=== PATIENT | male | born 1985 | race American Indian/Alaskan Native ===

== ENCOUNTER 2017-12-19 21:25 | Emergency (ER) | payer OTHER, MEDICAID ==
[~2017-12-19] VITALS: Ht 182.9 cm; Wt 158.8 kg
[~2017-12-19 21:25] MED LIST: PREDNISONE20 MG PO
--- NOTE | 2017-12-20 06:19 | EKG ---
[facility] [address] [facility] [place], [place] [address] Signed Normal sinus rhythm Cannot rule out Anterior infarct , age undetermined Abnormal ECG No previous ECGs available Confirmed by JOSE LUIS MC MD ([id number]) on 12/20/2017 6:19:26 AM Electronically Signed By: JOSE LUIS MC MD 12/20/17 0619 PATIENT NAME: GREG GAMBOA SALLIE Electrocardiogram DATE OF : 87 PHYSICIAN: JOSE LUIS MC MD REPORT #: [id number] REPORT IS CONFIDENTIAL AND NOT TO BE RELEASED WITHOUT AUTHORIZATION
== END 2017-12-19 23:30 | disposition home or self-care (01) ==
LOC: ED 21:25
PROC: 0T9B70Z Drainage of Bladder with Drainage Device, Via Natural or Artificial Opening (ICD-10-PCS; principal; 2017-12-19)
DX: R42 Dizziness and giddiness (principal)
CPT/HCPCS: 51701; 71046; 80053; 81001; 84484; 85025; 85379; 93005; 93010; 96374; 99284; G0480; J2060

== ENCOUNTER 2018-12-19 19:02 | Emergency (ER) | payer SELFPAY ==
[~2018-12-19] VITALS: Ht 182.9 cm; Wt 158.8 kg
== END 2018-12-19 22:13 | disposition home or self-care (01) ==
LOC: ED 19:02
DX: T78.1XXA Other adverse food reactions, not elsewhere classified, initial encounter (principal); R06.02 Shortness of breath; I10 Essential (primary) hypertension
CPT/HCPCS: 94640; 96374; 96375; 99284-25; J1200; J2930; Q0163

== ENCOUNTER 2019-06-26 04:42 | Inpatient (IN) | payer OTHER ==
[~2019-06-26] VITALS: Ht 182.9 cm; Wt 157.4 kg
--- NOTE | 2019-06-26 07:50 | NUR ---
REC'D PT TO ROOM 127. ROOM ORIENTION GIVEN, DEMO'D USE OF CALL LIGHT. PT ABLE TO STAND AND TRANSFER SELF TO BED. DENIES PAIN. DENIES SHORTNESS OF BREATH. HR AFIB 140-150'S. ON ESMOLOL DRIP AND FINISHING BANANA BAG.
--- NOTE | 2019-06-26 08:15 | NUR ---
PT HR CONT TO BE 130-150'S AT REST. ESMOLOL DRIP INCREASED TO 100MCG/KG/MIN. VS CHARTED. WILL CONT TO MONITOR AND ASSESS
--- NOTE | 2019-06-26 08:52 | NUR ---
DR. ALVES SAID TO INCREASE ESMOLOL DRIP. INCREASED TO 150MCH/KG/MIN. PT HR AFIB 120-150'S
--- NOTE | 2019-06-26 09:32 | NUR ---
PT HR 120-150'S AFIB. ESMOLOL DRIP INCREASED TO 200MCG. DR ALVES NOTIFIED. REC'D ORDER TO LEAVE AT 200MCG/KG/MIN AT THIS TIME.
--- NOTE | 2019-06-26 10:30 | NUR ---
SPOKE WITH PATIENT AND HIS MOTHER IN ROOM. PATIENT DENIES ANY KNOWN BARRIERS TO RETURNING HOME SAFELY. DISCUSSED HIS UNDERSTANDING OF DIAGNOSIS, MEDICATIONS AND SIDE EFFECTS, AND FOLLOW UP NEEDS. PATIENT STATES UNDERSTANDING, PATIENT FALLS ASLEEP EASILY DURING CONVERSATION. WILL CONTINUE TO FOLLOW.
--- NOTE | 2019-06-26 11:30 | NUR ---
DR. ALVES NOTIFIED OF PT HR CONTINUING TO SUSTAIN 120-150'S. AT BEDSIDE TO EVALUATE. GAVE 2 5MG IV DOSES OF CARDIZEM WITH SOME IMPROVEMENT. WILL CONT TO MONITOR AND ASSESS
--- NOTE | 2019-06-26 12:37 | NUR ---
PT RESTING IN BED. ESMOLOL FINISHED AND CARDIZEM DRIP STARTED PER DR. ALVES ORDER. PT C/O FEELING RESTLESS. FAMILY AT BEDSIDE. WILL CONT TO MONITOR AND ASSESS.
--- NOTE | 2019-06-26 12:50 | NUR ---
PT HR 120-140'S. INCREASED DILTIAZEM DRIP TO 15MG/HR. DR. ALVES HERE, ASKED FOR SOMETHING FOR ANXIETY FOR PT. NEW ORDERS REC'D.
--- NOTE | 2019-06-26 13:54 | NUR ---
PT STOOD AT BEDSIDE TO VOID. DENIED FEELING DIZZY OR LIGHTHEADED. KRISTEL WELL. BACK TO BED. PO LIBRIUM GIVEN. EDUCATED PT ON USE. VERB UNDERSTANDING. CALL LIGHT IN REACH. FAMILY AT BEDSIDE. DENIES FURTHER NEEDS.
--- NOTE | 2019-06-26 15:00 | NUR ---
PT STOOD AT BEDSIDE TO VOID. HR INCREASED TO 120-150 WITH ACTIVITY. PT BACK TO BED. HR CURRENTLY 100-110'S AT REST. WILL CONT TO MONITOR AND ASSESS.
--- NOTE | 2019-06-26 16:30 | NUR ---
PT RESTING IN BED. EYES CLOSED. FAMILY AT BEDSIDE. CALL LIGHT IN REACH
--- NOTE | 2019-06-26 16:53 | EKG ---
[facility] [address] [facility] [place] [address] Signed Atrial fibrillation with rapid ventricular response Possible Anterior infarct (cited on or before 19-DEC-2017) Abnormal ECG When compared with ECG of 19-DEC-2017 21:44, Atrial fibrillation has replaced Sinus rhythm Vent. rate has increased BY 81 BPM Confirmed by SUELLEN ALVES MD ([id number]) on 06/26/2019 4:53:21 PM Electronically Signed By: SUELLEN ALVES MD 06/26/19 1653 PATIENT NAME: GREG GAMBOA SALLIE Electrocardiogram DATE OF : 87 PHYSICIAN: SUELLEN ALVES MD REPORT #: [id number] REPORT IS CONFIDENTIAL AND NOT TO BE RELEASED WITHOUT AUTHORIZATION
--- NOTE | 2019-06-26 17:59 | NUR ---
PT STOOD AT BEDSIDE TO VOID. HR 110-130'S, AFIB. PT DENIES NEEDS AT THIS TIME. CALL LIGHT IN REACH.
--- NOTE | 2019-06-26 18:15 | NUR ---
PT EATING DINNER. DENIES NAUSEA OR HEADACHE. NO TREMOR NOTED. PT STATES "I FEEL BETTER". DENIES NEEDS. FAMILY AT BEDSIDE. HR CONTINUES TO BE LABILE, REMAINS ON CARDIZEM DRIP AT 15MG/HR. CALL LIGHT IN REACH.
--- NOTE | 2019-06-26 18:40 | NUR ---
PT NOTED TO HAVE MORE FREEQUENT PVC'S. DR. ALVES NOTIFIED AND NEW ORDERS REC'D. PT ASYMPTOMATIC. WILL CONT TO MONITOR AND ASSESS.
--- NOTE | 2019-06-26 19:51 | NUR ---
AMD TO BR TO HAVE BM AND VOID. KRISTEL BEING UP WELL, HR TO 110 WITH BEING UP. STATES FELT GOOD TO GET OUT OF BED.
--- NOTE | 2019-06-26 20:30 | NUR ---
PATIENT RESTING IN BED. DENIES ANY PAIN OR NAUSEA. CIWA 2 FOR MILD SWEATING. PATIENT REPORTS THE SWEATING AT NIGHT IS NORMAL FOR HIM, REQUEST A FAN. LUNGS ARE CLEAR, USING 2L NC WHILE SLEEPING DUE TO PROBABLE GERSON. IV DILTIAZEM 15MG/HR. PATIENT HR IRREGULAR 90-115. BP STABLE.
--- NOTE | 2019-06-26 21:59 | NUR ---
PATIENT CONVERTED INTO SINUS RHYTHM WITH HR 50-60'S. BP STABLE. DISCUSSED WITH DR. ALVES. DILTIAZEM STOPPED AT THIS TIME. VERBAL ORDERS TO HOLD MIDNIGHT DOSE OF LOPRESSOR. DISCUSSED CONCERNS OF PATIENT'S GERSON AND O2 SATS IN THE 70'S WITH 2L NC. ORDERS FOR BIPAP/CPAP RECEIVED. RT CONTACTED. PATIENT AGREEABLE TO PLAN OF CARE.
--- NOTE | 2019-06-26 23:00 | NUR ---
PATIENT TOLERATING CPAP WELL. O2 SAT >92%. PATIENT APPEARS TO BE SLEEPING SOUNDLY.
--- NOTE | 2019-06-27 00:25 | NUR ---
PATIENT WOKE TO VOICE, BUT IS FREQUENTLY DROWSEY. PATIENT DENIED TOILETING NEEDS. SCHEDULED MEDS PROVIDED. PATIENT CONTINUES TO TOLERATE CPAP. HR 80'S, SINUS RHYTHM.
--- NOTE | 2019-06-27 03:12 | NUR ---
PATIENT WOKE AND REQUESTED A BREAK FROM THE CPAP. DISCUSSED IMPROVEMENTS IN PATIENT'S O2 SAT FROM WEARING THE CPAP. PATIENT AGREES TO WEAR THE CPAP AGAIN AFTER AN HOUR. 3L NC PLACED.
--- NOTE | 2019-06-27 04:41 | NUR ---
PATIENT CONTINUES TO HAVE APNIC EPISODES WHILE SLEEPING. PATIENT AGREEABLE TO CPAP AT THIS TIME. REPORTS ONGOING DISCOMFORT IN HIS BACK. ASSISTED PATIENT TO POSITION PARTIALLY ON HIS SIDE. REPORTS BEING MORE COMFORTABLE. ALLOWED REST AT THIS TIME.
--- NOTE | 2019-06-27 06:08 | NUR ---
PATIENT WOKE FOR MORNING LABS. FREQUENTLY DROWSEY. ORIENTED AND CALM. REPORTS FEELING SOME TREMORS PREVIOUSLY, BUT NONE NOW. CIWA 0. SCHEDULED MEDS PROVIDED. DISCUSSED INDICATIONS FOR CPAP, PATIENT VERBALIZED UNDERSTANDING. DISCUSSED LOPRESSOR MEDICATION, PATIENT APPEARS TO HAVE MODERATE UNDERSTANDING. AGREES TO CONTINUE WEARING CPAP.
--- NOTE | 2019-06-27 08:06 | NUR ---
PT ALERT AND ORIENTED SITTING UP IN BED. ASSESSMENT COMPLETE. PT DENIES HEADACHE, TREMORS, OR NAUSEA. NO C/O PAIN. HR IN THE 80'S. O2 SATS 97% ON RA. CALL LIGHT IN REACH.
--- NOTE | 2019-06-27 08:35 | NUR ---
PT SITTING UP IN BED EATING BREAKFAST. AM MEDS GIVEN, EDUCATED PT ON MEDS. PT ABLE TO TEACH BACK PREVIOUS EDUCATION GIVEN ON A-FIB AND ALCOHOL WITHDRAWAL. PT DENIES QUESTIONS OR CONCERNS AT THIS TIME, WILL ALLOW PT TO REST.
--- NOTE | 2019-06-27 09:36 | NUR ---
PT LYING IN BED, VISITOR AT BEDSIDE. PT DENIES NAUSEA, TREMORS, ANXIETY OR HEADACHE. HR IN THE 80'S. CALL LIGHT IN REACH.
--- NOTE | 2019-06-27 10:34 | NUR ---
PT OOB TO AMB TO BR WITH SBA TO VOID 400 ML YELLOW URINE. KRISTEL WELL. NO C/O OF PALPITATIONS, SOB, OR LIGHT HEADEDNESS. HR IN THE MID 80'S. PT BACK TO BED. FAMILY AT BEDSIDE. CALL LIGHT IN REACH.
--- NOTE | 2019-06-27 11:30 | NUR ---
SPOKE WITH PATIENT IN ROOM. DISCUSSED WE CAN ASK [facility] DRUG [facility] ALCOHOL COUNSELOR COME AND VISIT WITH HIM FOR RESOURCES OR QUESTIONS. HE DECLINES STATING HE IS GOING TO CONTACT [facility] DRUG AND ALCOHOL PROGRAM. HE STATES HE HAS BEEN THERE BEFORE AND FEELS MORE COMFORTABLE GOING THERE. ENCOURAGED THIS AND ASKED IF HE NEEDS ME TO CALL THEM AND SET UP AN APPOINTMENT, HE DECLINES STATING HE WILL CALL BECAUSE HE ISN'T SURE WHEN HE CAN GO YET. PATIENT DENIES ANY QUESTIONS OR NEEDS AT THIS TIME.
--- NOTE | 2019-06-27 12:20 | NUR ---
PT SITTING UP IN BED FINISHING LUNCH. PT DENIES NAUSEA, STATES "I HAVEN'T FELT THIS GOOD IN A LONG TIME". PT ALSO EXPRESSES HE IS HAPPY TO HAVE AN APPETITE BACK. PT DENIES NEEDS AT THIS TIME.
--- NOTE | 2019-06-27 13:00 | NUR ---
PT UP TO SHOWER INDEPENDENTLY, HR UP TO 100'S IN SHOWER. PT DENIES SOB OR PALPITATIONS, RR 24. PT DENIES HEADACHE OR TREMORS. LINENS CHANGED. AM CARE DONE BY PT AT KRISTEL MA. PT BACK TO BED AT THIS TIME.
--- NOTE | 2019-06-27 15:02 | NUR ---
PT SITTING UP IN BED HAVING A SNACK. DENIES NAUSEA, TREMORS, OR ANXIETY. PT STATES HE'S DOING A "LOT OF SELF REFLECTION" SINCE VISITING WITH DR. ALVES THIS AFTERNOON. HR IN THE 'S, 02 SATS 96% ON RA. PT DENIES OTHE NEEDS AT THIS TIME. CALL LIGHT IN REACH.
--- NOTE | 2019-06-27 17:31 | NUR ---
MED REC COMPLETE
--- NOTE | 2019-06-27 17:37 | NUR ---
PATIENT USES CALL LIGHT AND REQUESTING SOMETHING FOR HIS "HEADACHE" THAT HE REPORTS TO BE A 5/10 AT THIS TIME. PT GIVEN TYLENOL (SEE EMAR). PATIENT ASKED ABOUT CAFFEINE USE AND STATES HE DRINKS A FAIR AMOUNT OF CAFFEINE/DAY, THEREFORE PATIENT ALSO PROVIDED WITH A POP. INSTRUCTED PATIENT TO CALL RN IF HEADACHE DOES NOT SUBSIDE AFTER MEDICATION. NO SIGNS OF ETOH W/D AT THIS TIME, AND PATIENT RESTING CALMLY IN BED. WILL CONTINUE TO MONITOR.
--- NOTE | 2019-06-27 18:43 | NUR ---
PT LYING IN BED VISITING WITH FAMILY AT BEDSIDE. SEEMS TO BE IN GOOD SPIRITS. PT DENIES S/SX OF ETOH WITHDRAWAL. HR IN THE 80'S, NO C/O SOB OR PALPITATIONS. PT DENIES NEEDS AT THIS TIME, CALL LIGHT IN REACH.
--- NOTE | 2019-06-27 19:56 | NUR ---
SHIFT REPORT RECEIVED. PATIENT UP TO THE BATHROOM WITH MINIMAL ASSIST. APPEARS STEADY ON HIS FEET. FRESH ICE PROVIDED PER REQUEST. DENIES OTHER NEEDS.
--- NOTE | 2019-06-27 21:06 | NUR ---
AMB TO BR, KRISTEL WELL.
--- NOTE | 2019-06-27 21:15 | NUR ---
PATIENT PROVIDED WITH EVENING MEDICATIONS. VS STABLE. SINUS RHYTHM NOTED, HR 80'S. CIWA = 1. PATIENT REPORTS MILD ANXIETY, PRN MEDS PROVIDED. RT IN TO SEE PATIENT. CONTINUED EDUCATION PROVIED ON GERSON AND CPAP. PATIENT AGREEABLE TO WEARING CPAP AGAIN TONIGHT.
--- NOTE | 2019-06-27 22:30 | NUR ---
PATIENT TOLERATING CPAP. VS STABLE.
--- NOTE | 2019-06-28 01:06 | NUR ---
PATIENT UP TO USE THE BATHROOM. STEADY ON HIS FEET. REPORTS SLEEPING SOUNDLY WITH CPAP. VS STABLE. PATIENT RETURNED TO BED. CPAP IN PLACE.
--- NOTE | 2019-06-28 04:45 | NUR ---
PATIENT HAS BEEN SLEEPING SOUNDLY WITH CPAP IN PLACE. VS STABLE. PATIENT WOKE EASILY TO VOICE. DENIES ANY NEEDS AT THIS TIME. CALL LIGHT IN REACH.
--- NOTE | 2019-06-28 06:28 | NUR ---
PATIENT WOKE AT THIS TIME. REPORTS FEELING LIKE HE "SLEPT AMAZING". REQUESTED A SODA, WHICH WAS PROVIED.
--- NOTE | 2019-06-28 07:44 | NUR ---
PT ALERT AND ORIENTED LYING IN BED WATCHING TV. DENIES NAUSEA, HEADACHE, OR TREMORS. HR IN THE 70-80'S, 02 97% ON RA. PT DENIES OTHER NEEDS AT THIS TIME, CALL LIGHT IN REACH.
--- NOTE | 2019-06-28 08:30 | NUR ---
REPRESENTITIVE FROM [facility] IN TO SPEAK WITH PT ABOUT DRUG AND ALCOHOL SERVICES AVAILABLE. PT SEEMED OPEN TO ACCEPTING SERVICES.
[2019-06-28] MEDS ORDERED: METOPROLOL SUC200 MG PO (09:41)
[2019-06-28] MEDS ORDERED: ASPIRIN EC81 MG PO (09:42)
[2019-06-28] MEDS ORDERED: GABAPENTIN300 MG PO (09:42)
[2019-06-28] MEDS ORDERED: LISINOPRIL10 MG PO (09:42)
[2019-06-28] MEDS ORDERED: HYDROXYZINE PAM25 MG PO (09:43)
[2019-06-28] MEDS ORDERED: TRAZODONE HCL50 MG PO (09:43)
--- NOTE | 2019-06-28 10:00 | NUR ---
PT UP TO BR INDPENDENTLY TO VOID 350 ML YELLOW URINE. KRISTEL WELL. PT DENIES NAUSEA AND OTHER S/SX OF ETOH WITHDRAWAL. PT BACK TO BED. CALL LIGHT IN REACH.
--- NOTE | 2019-06-28 11:20 | NUR ---
DISCHARGE INSTRUCTIONS GIVEN. [facility]. PT STATES HIS UNDERSTANDING OF MEDICATIONS AND FOLLOW-UP INSTRUCTIONS. PT TAKEN OUT BY WC TO RIDE WAITING IN THE PARKING LOT.
== END 2019-06-28 11:10 | disposition home or self-care (01) | DRG 309 ==
LOC: ED 04:42 → CCU 04:43
PROVIDERS: ADMIT Internal Medicine
DX: I48.0 Paroxysmal atrial fibrillation (principal); Z68.42 Body mass index [BMI] 45.0-49.9, adult; I51.9 Heart disease, unspecified; I10 Essential (primary) hypertension; F10.20 Alcohol dependence, uncomplicated; E66.01 Morbid (severe) obesity due to excess calories; F31.9 Bipolar disorder, unspecified; F41.9 Anxiety disorder, unspecified; F51.05 Insomnia due to other mental disorder
CPT/HCPCS: 36415; 71045; 80048; 80053; 80061; 81001; 83036; 83735; 84443; 84484; 85025; 93005; 93010; 93306; 94660; 96365; 96366; 96368; 96372; 96375; 96376; 99285-25; G0378; G0480; J1650; J2060; J2405; J3411; J3475; J7030; Q0177

== ENCOUNTER 2019-08-08 16:54 | Emergency (ER) | payer OTHER ==
[~2019-08-08] VITALS: Ht 182.9 cm; Wt 157.4 kg
--- OUTSIDE RECORDS SUMMARY | ~2019-08-08 | XMS | Clinical Summary ---
Demographics + + + | Address | [address] | | | [place] [address] | + + + | Home Phone | | + + + | Preferred Language | Unknown | + + + | Marital Status | Single | + + + | Restorationist Affiliation | Unknown | + + + | Race | Unknown | + + + | Ethnic Group | Unknown | + + + Author + + + | Author | [facility] | | | and [place] | + + + | Organization | [facility] | | | and [place] | + + + | Address | Unknown | + + + | Phone | Unavailable | + + + Support + + +---------+ + | Name | Relationship | Address | Phone | + + +---------+ + | Charles Bobo | ECON | Unknown | | + + +---------+ + Care Team Providers + +------+ + | Care Kitchen Steward Name | Role | Phone | + +------+ + | Isabel Cheung | PCP | | + +------+ + Allergies Not on File Medications Not on file Active Problems Not on file Social History + +-------+ +--------+------+ | Tobacco Use | Types | Packs/Day | Years | Date | | | | | Used | | + +-------+ +--------+------+ | Never Assessed | | | | | + +-------+ +--------+------+ + + + | Sex Assigned at | Date Recorded | | | | + + + | Not on file | | + + + + + + + | Job Start Date | Occupation | Industry | + + + + | Not on file | Not on file | Not on file | + + + + + + + + | Travel History | Travel Start | Travel End | + + + + + + | No recent travel history available. | + + Last Filed Vital Signs Not on file Plan of Treatment +--------+---------+ + + + | Date | Type | Specialty | Care Team | Description | +--------+---------+ + + + | 08/28/ | Office | Cardiology | Gerry Asif, | | | 2018 | Visit | | MD Shelley Mari | | | | | | [facility] | | | | | | [place] [address] | | | | | | [phone] | | | | | | | | +--------+---------+ + + + | 09/11/ | Office | Sleep Medicine | Uma Kulkarni MD | | | 2018 | Visit | | [address] | | | | | | [place] | | | | | | [phone] | | | | | | | | +--------+---------+ + + + + + + + + | Health Maintenance | Due Date | Last Done | Comments | + + + + + | Vaccine: | | | | | Dtap/Tdap/Td (1 - | 6 | | | | Tdap) | | | | + + + + + | Vaccine: Influenza | | | | | (#1) | 9 | | | + + + + + Results Not on filefrom Last 3 Months Insurance + +--------+ +--------+-------+---------+--------+ | Payer | Benefi | Subscriber | Effect | Phone | Address | Type | | | t Plan | ID | [id number] | | | | | | / | | Dates | | | | | | Group | | | | | | + +--------+ +--------+-------+---------+--------+ | [employer] [facility] | [employer] | [id number] | 01/26/20 | | | Indemn | | SERVICE | YELLOW | | 12-Pre | | | ity | | | HAWK | | sent | | | | + +--------+ +--------+-------+---------+--------+ + +--------+ +--------+ + + | Guarantor Name | Accoun | Relation to | Date | Phone | Billing Address | | | t Type | Patient | of | | | | | | | | | | + +--------+ +--------+ + + | Gordy Zhu | Person | Self [birth year] | [address] | | | al/Fam | | 1986 | [phone] | [place] [address] | | | kimberly | | | 4 (Home) | | + +--------+ +--------+ + + Advance Directives + + + + + | Type | Date Recorded | Patient | Explanation | | | | Assessment Coordinator | | + + + + + | Power of | | | | | Sharepoint Architect | | | | + + + + + | Advance | | | | | Directive | | | | + + + + +"
--- OUTSIDE RECORDS SUMMARY | ~2019-08-08 | XMS | Clinical Summary ---
Demographics + + + | Address | [address] | | | [place] [address] | + + + | Home Phone | | + + + | Preferred Language | Unknown | + + + | Marital Status | Single | + + + | Synagogue Affiliation | Unknown | + + + | Race | Unknown | + + + | Ethnic Group | Unknown | + + + Author + + + | Author | [facility] | | | and [place] | + + + | Organization | [facility] | | | and [place] [...] Team Providers + +------+ + | Care Computing Machine Operator Name | Role | Phone | + +------+ + | Isabel Cehung | PCP | | + +------+ + [...] | | | | | | [place] [address] | | | | | | [phone] | | | | | | | | +--------+---------+ + + + | 09/11/ | Office | Sleep Medicine | Uma Kulkarni MD | | | 2018 | Visit | | [address] | | | | | | [place] | | | | | | [phone] | | | | | | | [...] | | | + +--------+ +--------+-------+---------+--------+ | [facility] | [employer] | [id number] | 01/26/20 | | | Indemn | [...] | Self | [birth year] | [address] | | | al/Fam | | 1986 | [phone] | [place] [address] | | | kimberly | | | 4 (Home) | | + +--------+ +--------+ + + Advance Directives + + + + + | Type | Date Recorded | Patient | Explanation | | | | Hydroelectric Systems Technician | | + + + + + | Power of | | | | | Geological Science Teacher | | | | + + + + + | Advance | | | | | Directive | | | | + + + + +"
[~2019-08-08 16:54] MED LIST changes: +ASPIRIN EC81 MG PO; +GABAPENTIN300 MG PO; +HYDROXYZINE PAM25 MG PO; +LISINOPRIL10 MG PO; +METOPROLOL SUC200 MG PO; +TRAZODONE HCL50 MG PO
[2019-08-08] MEDS ORDERED: ABILIFY10 MG PO (17:06)
--- NOTE | 2019-08-08 20:22 | EKG ---
[facility] [address] [place] [address] Signed Normal sinus rhythm Cannot rule out Inferior infarct , age undetermined Cannot rule out Anterior infarct (cited on or before 19-DEC-2017) Abnormal ECG When compared with ECG of 26-JUN-2019 04:47, Sinus rhythm has replaced Atrial fibrillation Vent. rate has decreased BY 87 BPM Confirmed by SUELLEN ALVES MD ([id number]) on 08/08/2019 8:21:40 PM Electronically Signed By: SUELLEN ALVES MD 08/08/192021 PATIENT NAME: GREG GAMBOA Electrocardiogram DATE OF : 87 PHYSICIAN: SUELLEN ALVES MD REPORT #: [id number] REPORT IS CONFIDENTIAL AND NOT TO BE RELEASED WITHOUT AUTHORIZATION
== END 2019-08-08 18:54 | disposition home or self-care (01) ==
LOC: ED 16:54
DX: R00.2 Palpitations (principal); I10 Essential (primary) hypertension; I48.91 Unspecified atrial fibrillation; Z79.899 Other long term (current) drug therapy
CPT/HCPCS: 71045; 80053; 84443; 84484; 85025; 85379; 93005; 93010; 99285-25; J7040

== ENCOUNTER 2020-07-05 13:18 | Emergency (ER) | payer OTHER ==
[~2020-07-05] VITALS: Ht 182.9 cm; Wt 157.4 kg
--- OUTSIDE RECORDS SUMMARY | ~2020-07-05 | XMS | Encounter Summary ---
Demographics + + + | Address | [address] | | | [place] [address] | + + + | Home Phone | | + + + | Preferred Language | Unknown | + + + | Marital Status | Single | + + + | Mandaeism Affiliation | Unknown | + + + | Race | or | + + + | Ethnic Group | Not or | + + + Author + + + | Author | [facility] | | | and [place] | + + + | Organization | [facility] | | | and [place] | + + + | Address | Unknown | + + + | Phone | Unavailable | + + + Support + + +---------+ + | Name | Relationship | Address | Phone | + + +---------+ + | Charles Bobo | ECON | Unknown | | + + +---------+ + Care Team Providers + +------+ + | Care Banquet Cook Name | Role | Phone | + +------+ + | Isabel Cheung | PCP | | + +------+ + Encounter Details +--------+ + + + + | Date | Type | Department | Care Team | Description | +--------+ + + + + | 04/11/ | Abstract | [facility] | Provider, | | | 2020 | | CARDIOLOGY [address] | | | | [address] [place], | [address] | | | | | [place] [address] | [place] [address] | | | | | [phone] | | | +--------+ + + + + Social History + +-------+ +--------+------+ | Tobacco Use | Types | Packs/Day | Years | Date | | | | | Used | | + +-------+ +--------+------+ | Never Smoker | | | | | + +-------+ +--------+------+ + +---+---+---+ | Smokeless Tobacco: | | | | | Never Used | | | | + +---+---+---+ + + +---------+ + | Alcohol Use | Drinks/Week | oz/Week | Comments | + + +---------+ + | Not Currently | | | | + + +---------+ + + + + | Sex Assigned at | Date Recorded | | | | + + + | Not on file | | + + + documented as of this encounter Plan of Treatment +--------+---------+ + + + | Date | Type | Specialty | Care Team | Description | +--------+---------+ + + + | 08/06/ | Office | Sleep Medicine | Anupam Germain PA | | | 2020 | Visit | | [address] | | | | | | [place] | | | | | | [address] | | | | | | | | +--------+---------+ + + + | 04/11/ | Office | Cardiology | Gerry Asif, | | | 2020 | Visit | | [address] | | | | | | [place], | | | | | | [place] [address] | | | | | | [phone] | | | | | | | | +--------+---------+ + + + documented as of this encounter Procedures + +--------+ + + + | Procedure Name | Priori | Date/Time | Associated Diagnosis | Comments | | | ty | | | | + +--------+ + + + | EXTERNAL LAB: | Routin | 09/11/2019 | | Results for this | | VITAMIN D, | e | | | procedure are in the | | 25-HYDROXY | | | | results section. | + +--------+ + + + | EXTERNAL LAB: CBC | Routin | 09/11/2019 | | Results for this | | | e | | | procedure are in the | | | | | | results section. | + +--------+ + + + | EXTERNAL LAB: | Routin | 09/11/2019 | | Results for this | | TRIGLYCERIDES | e | | | procedure are in the | | | | | | results section. | + +--------+ + + + | EXTERNAL LAB: | Routin | 09/11/2019 | | Results for this | | CHOLESTEROL, HDL | e | | | procedure are in the | | | | | | results section. | + +--------+ + + + | EXTERNAL LAB: | Routin | 09/11/2019 | | Results for this | | CHOLESTEROL, TOTAL | e | | | procedure are in the | | | | | | results section. | + +--------+ + + + | EXTERNAL LAB: | Routin | 09/11/2019 | | Results for this | | CHOLESTEROL, LDL | e | | | procedure are in the | | | | | | results section. | + +--------+ + + + | CBC WITH | Routin | 09/11/2019 | | Results for this | | DIFFERENTIAL | e | | | procedure are in the | | | | | | results section. | + +--------+ + + + documented in this encounter Results CBC with Differential (09/11/2019) + +-------+ + + + | Component | Value | Ref Range | Performed | Pathologist | | | | | At | Signature | + +-------+ + + + | MCH | 30.5 | 26.0 - 33.0 pg | | | + +-------+ + + + | MCHC | 33.8 | 31.0 - 37.0 | | | | | | g/dL | | | + +-------+ + + + | % Basophils | 0.5 | 1.0 % | | | + +-------+ + + + + + | Specimen | + + | Blood | + + External Lab: Vitamin D, 25-Hydroxy (09/11/2019) + + + + + + | Component | Value | Ref Range | Performed | Pathologist | | | | | At | Signature | + + + + + + | Vitamin D, | 10.9 (A) | 30 - 100 | EXTERNAL | | | 25-Hydroxy, | | | LAB | | | External | | | | | + + + + + + + + | Specimen | + + | Blood | + + + + | Resulting Agency Comment | + + | [facility] | + + + +---------+ + + | Performing | Address | City/State/Zipcode | Phone Number | | Organization | | | | + +---------+ + + | EXTERNAL LAB | | | | + +---------+ + + External Lab: CBC (09/11/2019) + + + + + + | Component | Value | Ref Range | Performed | Pathologist | | | | | At | Signature | + + + + + + | WBC, | 8.76 | 4 - 11 | EXTERNAL | | | External | | | LAB | | + + + + + + | HGB, | 16.01 | 13.5 - 17.5 | EXTERNAL | | | External | | | LAB | | + + + + + + | HCT, | 47.73 | 40 - 50 | EXTERNAL | | | External | | | LAB | | + + + + + + | PLT, | 409 | 140 - 440 | EXTERNAL | | | External | | | LAB | | + + + + + + | Neutrophils | 56 | 37 - 67 | EXTERNAL | | | %, | | | LAB | | | External | | | | | + + + + + + | Lymphocytes | 22.30 (A) | 24 - 44 | EXTERNAL | | | %, | | | LAB | | | External | | | | | + + + + + + | Monocytes | 4.70 (A) | 5 - 12 | EXTERNAL | | | %, External | | | LAB | | + + + + + + | Eosinophils | 16.50 (A) | 0 - 5 | EXTERNAL | | | %, | | | LAB | | | External | | | | | + + + + + + | Neutrophils | 4.90 | 1.3 - 7 | EXTERNAL | | | , Absolute, | | | LAB | | | External | | | | | + + + + + + | Lymphocytes | 1.95 | 0.8 - 3.1 | EXTERNAL | | | , Absolute, | | | LAB | | | External | | | | | + + + + + + | Monocytes, | 0.41 | 0.2 - 1 | EXTERNAL | | | Absolute, | | | LAB | | | External | | | | | + + + + + + | Eosinophils | 1.44 (A) | 0 - 0.8 | EXTERNAL | | | , Absolute | | | LAB | | + + + + + + | Basophils, | 0.04 | 0 - 0.6 | EXTERNAL | | | Absolute | | | LAB | | + + + + + + | RBC, | 5.24 | 4.3 - 5.7 | EXTERNAL | | | External | | | LAB | | + + + + + + | MCV, | 90 | 81 - 99 | EXTERNAL | | | External | | | LAB | | + + + + + + | RDW, | 12.45 | 10.5 - 16 | EXTERNAL | | | External | | | LAB | | + + + + + + + + | Resulting Agency Comment | + + | [facility] | + + + +---------+ + + | Performing | Address | City/State/Zipcode | Phone Number | | Organization | | | | + +---------+ + + | EXTERNAL LAB | | | | + +---------+ + + External Lab: Triglycerides (09/11/2019) + +-------+ + + + | Component | Value | Ref Range | Performed | Pathologist | | | | | At | Signature | + +-------+ + + + | Triglycerid | 100 | 150 | EXTERNAL | | | es, | | | LAB | | | External | | | | | + +-------+ + + + + + | Specimen | + + | Blood | + + + + | Resulting Agency Comment | + + | [facility] | + + + +---------+ + + | Performing | Address | City/State/Zipcode | Phone Number | | Organization | | | | + +---------+ + + | EXTERNAL LAB | | | | + +---------+ + + External Lab: Cholesterol, HDL (09/11/2019) + +--------+ + + + | Component | Value | Ref Range | Performed | Pathologist | | | | | At | Signature | + +--------+ + + + | HDL | 35 (A) | 40 mg/dl | EXTERNAL | | | Cholesterol | | | LAB | | | , External | | | | | + +--------+ + + + + + | Specimen | + + | Blood | + + + + | Resulting Agency Comment | + + | [facility] | + + + +---------+ + + | Performing | Address | City/State/Zipcode | Phone Number | | Organization | | | | + +---------+ + + | EXTERNAL LAB | | | | + +---------+ + + External Lab: Cholesterol, Total (09/11/2019) + +-------+ + + + | Component | Value | Ref Range | Performed | Pathologist | | | | | At | Signature | + +-------+ + + + | Cholesterol | 159 | 200 mg/dl | EXTERNAL | | | , Total, | | | LAB | | | External | | | | | + +-------+ + + + + + | Specimen | + + | Blood | + + + + | Resulting Agency Comment | + + | [facility] | + + + +---------+ + + | Performing | Address | City/State/Zipcode | Phone Number | | Organization | | | | + +---------+ + + | EXTERNAL LAB | | | | + +---------+ + + External Lab: Cholesterol, LDL (09/11/2019) + +---------+ + + + | Component | Value | Ref Range | Performed | Pathologist | | | | | At | Signature | + +---------+ + + + | LDL | 105 (A) | 100 | EXTERNAL | | | Cholesterol | | | LAB | | | , Direct, | | | | | | External | | | | | + +---------+ + + + + + | Specimen | + + | Blood | + + + + | Resulting Agency Comment | + + | [facility] | + + + +---------+ + + | Performing | Address | City/State/Zipcode | Phone Number | | Organization | | | | + +---------+ + + | EXTERNAL LAB | | | | + +---------+ + + documented in this encounter Visit Diagnoses Not on filedocumented in this encounter"
--- OUTSIDE RECORDS SUMMARY | ~2020-07-05 | XMS | Encounter Summary ---
Demographics + + + | Address | [address] | | | [place] [address] | + + + | Home Phone | | + + + | Preferred Language | Unknown | + + + | Marital Status | Single | + + + | Adventist Affiliation | Unknown | + + + | Race | or | + + + | Ethnic Group | Not or | + + + Author + + + | Author | [facility] | | | and [place] | + + + | Organization | [facility] | | | and [...] Team Providers + +------+ + | Care Regular Senior Care Provider Name | Role | Phone | + +------+ + | Isabel Cheung | PCP | | + +------+ + Reason for Visit + +--------+ + | Reason | Onset | Comments | | | Date | | + +--------+ + | Follow-up | 05/07/ | | | | 2020 | | + +--------+ + Encounter Details +--------+ + + + + | Date | Type | Department | Care Team | Description | +--------+ + + + + | 05/07/ | Telephone | [facility] [place] [facility] | Uma Kulkarni MD | Follow-up | | 2020 | | SLEEP DISORDER [address] | [address] | | | | | [place] [place] | [place] | | | | | [place] [address] | [address] | | | | | [phone] | | | +--------+ + + + [...] + + documented as of this encounter Miscellaneous Notes Telephone Encounter - Radha Yan Electronic Tester - 06/06/2020 10:40 AM PDTCalled the pa tient and there was no answer. This is my third attempt to reach the patient. I will send th is note to NICK Durand. This is a Dr. Kulkarni patient. elephone Encounter - Radha Yan Medical Ass istant - 05/23/2020 9:09 AM PDTCalled the patient and left a message to call us back. I jozef l try back in a few days. elephone Encounter - Radha Yan Medical Assistant - 05/07/2020 9:30 AM PD TCalled the patient to see if he has picked up his cpap machine yet. He does need to schedul e a follow up with JORDEN Miranda. I left a message to call us back. I will try back in a few d ays. docume nted in this encounter Plan of Treatment +--------+---------+ + + + | Date | Type | Specialty | Care Team | Description | +--------+---------+ + + + | 08/06/ | Office | Sleep Medicine | Anupam Germain PA | | 2019 | Visit | | [address] | | | | | | [place] | | | | | | [address] | | | | | | | | +--------+---------+ + + + | 04/11/ | Office | Cardiology | Londonhellnesumi[place]erry, | | | 2020 | Visit | | MD [address] | | | | | | [place], | | | | | | [place] [address] | | | | | | [phone] | | | | | | | | +--------+---------+ + + + documented as of this encounter Visit Diagnoses Not on filedocumented in this encounter"
--- OUTSIDE RECORDS SUMMARY | ~2020-07-05 | XMS | Clinical Summary ---
Demographics + + + | Address | [address] | | | [place] [address] | + + + | Home Phone | | + + + | Preferred Language | Unknown | + + + | Marital Status | Single | + + + | Baptism Affiliation | Unknown | + + + | Race | or | + + + | Ethnic Group | Not or | + + + Author + + + | Author | [facility] | | | and [place] | + + + | Organization | [facility] | | | [...] Team Providers + +------+ + | Care Stone Dresser Name | Role | Phone | + +------+ + | Isabel Cheung | PCP | | + +------+ + Allergies No Known Allergies Medications + + + +---------+------+------+-------+ | Medication | Sig | Dispensed | Refills | Star | End | Statu | | | | | | t | Date | s | | | | | | Date | | | + + + +---------+------+------+-------+ | ARIPiprazole | Take 10 mg by mouth | | 0 | | | Activ | | (ABILIFY) 10 mg | Daily. | | | | | e | | tablet | | | | | | | + + + +---------+------+------+-------+ | aspirin 81 MG | Take 81 mg by mouth | | 0 | | | Activ | | tablet | Daily. | | | | | e | + + + +---------+------+------+-------+ | traZODone | Take 50 mg by mouth | | 0 | | | Activ | | (DESYREL) 50 mg | nightly. | | | | | e | | tablet | | | | | | | + + + +---------+------+------+-------+ | metoprolol | Take 200 mg by mouth | | 0 | | | Activ | | succinate | Daily. | | | | | e | | (TOPROL-XL) 200 mg | | | | | | | | ER tablet | | | | | | | + + + +---------+------+------+-------+ | hydrOXYzine | Take 25 mg by mouth | | 0 | | | Activ | | pamoate (VISTARIL) | as needed for | | | | | e | | 25 mg capsule | Itching. | | | | | | + + + +---------+------+------+-------+ | Cyanocobalamin | Take by mouth. | | 0 | | | Activ | | (VITAMIN B 12 PO) | | | | | | e | + + + +---------+------+------+-------+ | VITAMIN D PO | Take by mouth. | | 0 | | | Activ | | | | | | | | e | + + + +---------+------+------+-------+ | lisinopril | Take 1 tablet by | 180 | 3 | 09/27 | | Activ | | (PRINIVIL, ZESTRIL) | mouth 2 times daily. | tablet | | 03/16 | | e | | 20 mg | | | | 20 | | | | tabletIndications: | | | | | | | | Hypertension, | | | | | | | | essential | | | | | | | + + + +---------+------+------+-------+ Active Problems + + + | Problem | Noted Date | + + + | Atrial fibrillation | 08/22/2019 | + + + + + | Overview: Echocardiogram on 10/05/19 shows this is a | | technically limited study due to a poor acoustic windows | | secondary to body habitus, definity contrast agent was utilized, | | normal left ventricular size with a mild concentric left | | ventricular hypertrophy, left ventricular systolic function is | | preserved. LVEF is 65%, not well visualized valvular structure, | | normal right-sided pressure, normal IVC with a normal respiratory | | collapse. | + + + + + | Hypertension, essential | 08/22/2019 | + + + | Morbid obesity | 08/22/2019 | + + + | Alcoholic | 08/22/2019 | + + + | Bipolar disorder | 08/22/2019 | + + + | Anxiety | 08/22/2019 | + + + | Snoring | 08/22/2019 | + + + | Sleep apnea | 08/22/2019 | + + + Encounters +--------+ + + + + | Date | Type | Specialty | Care Team | Description | +--------+ + + + + | 07/02/ | Office | Sleep Medicine | Anupam Germain PA | GERSON on CPAP (Primary | | 2019 | Visit | | | Dx) | +--------+ + + + + | 06/12/ | Clinical | Sleep Medicine | Dewayne Saenz MD | GERSON (obstructive | 2019 | Support | | | sleep apnea) | | | | | | (Primary Dx) | +--------+ + + + + | 05/07/ | Telephone | Sleep Medicine | Uma Kulkarni MD | Follow-up | | 2019 | | | | | +--------+ + + + + | 04/11/ | Virtual | Cardiology | Gerry Asif, | Atrial fibrillation, | | 2019 | Office | | MD | unspecified type | | | Visit | | | ([facility]) (Primary Dx); | | | | | | Hypertension, | | | | | | essential | +--------+ + + + + | 04/11/ | Abstract | Cardiology | Provider, | | | 2019 | | | Historical, MD | | +--------+ + + + + from Last 3 Months Social History + +-------+ +--------+------+ | Tobacco [...] on file | | + + + Last Filed Vital Signs + + + + + | Vital Sign | Reading | Time Taken | Comments | + + + + + | Blood Pressure | 128/70 | 07/02/2020 12:47 PM | | | | | PDT | | + + + + + | Pulse | 84 | 07/02/2020 12:47 PM | | | | | PDT | | + + + + + | Temperature | - | - | | + + + + + | Respiratory Rate | 16 | 07/02/2020 12:47 PM | | | | | PDT | | + + + + + | Oxygen Saturation | 99% | 07/02/2020 12:47 PM | | | | | PDT | | + + + + + | Inhaled Oxygen | - | - | | | Concentration | | | | + + + + + | Weight | 146.6 kg (323 lb 3.1 | 07/02/2020 12:47 PM | | | | oz) | PDT | | + + + + + | Height | 182.9 cm (6') | 06/12/2020 1:55 PM | | | | | PDT | | + + + + + | Body Mass Index | 43.83 | 06/12/2020 1:55 PM | | | | | PDT | | + + + + + Plan of Treatment +--------+---------+ + + + | Date | Type | Specialty | Care Team | Description | +--------+---------+ + + + | 08/06/ | Office | Sleep Medicine | Anupam Germain PA | | | 2019 | Visit | | [address] | | | | | | [place] | | | | | | [address] | | | | | | | | +--------+---------+ + + + | 04/11/ | Office | Cardiology | Gerry Asif, | | | 2020 | Visit | | MD [address] | | | | | | [place], | | | | | | [place] [address] | | | | | | [phone] | | | | | | | | +--------+---------+ + + + + + + + + | Health Maintenance | Due Date | Last | Comments | | | | Done | | + + + + + | Hepatitis C | | | | | Screening | 7 | | | + + + + + | Med Mgmt: HBA1C | | | | | | 7 | | | + + + + + | Medication | | | | | Management | 7 | | | + + + + + | Vaccine: | | | | | Pneumococcal 19-64 | 3 | | | | (1 of 1 - PPSV23) | | | | + + + + + | Vaccine: | | | | | Dtap/Tdap/Td (1 - | 6 | | | | Tdap) | | | | + + + + + | Vaccine: Influenza | | | | | (#1) | 0 | | | + + + + + | Med Mgmt: Cr | | 09/11/20 | | | | 0 | 19, | | | | | 09/11/20 | | | | | 19 | | + + + + + | Med Mgmt: HCT | | 09/11/20 | | | | 0 | 19, | | | | | 09/11/20 | | | | | 19 | | + + + + + | Med Mgmt: HGB | | 09/11/20 | | | | 0 | 19, | | | | | 09/11/20 | | | | | 19 | | + + + + + | Med Mgmt: K | | 09/11/20 | | | | 0 | 19, | | | | | 09/11/20 | | | | | 19 | | + + + + + | Med Mgmt: PLT | | 09/11/20 | | | | 0 | 19, | | | | | 09/11/20 | | | | | 19 | | + + + + + | Med Mgmt: RBC | | 09/11/20 | | | | 0 | 19, | | | | | 09/11/20 | | | | | 19 | | + + + + + | Med Mgmt: WBC | | 09/11/20 | | | | 0 | 19, | | | | | 09/11/20 | | | | | 19 | | + + + + + | Med Mgmt: HDL | | 09/11/20 | | | | 4 | 19 | | + + + + + | Med Mgmt: LDL | | 09/11/20 | | | | 4 | 19 | | + + + + + | Med Mgmt: Total | | 09/11/20 | | | Cholesterol | 4 | 19 | | + + + + + | Med Mgmt: | | 09/11/20 | | | Triglycerides | 4 | 19 | | + + + + + Results Not on filefrom Last 3 Months Insurance + +--------+ +--------+ +---------+--------+ | Payer | Benefi | Subscriber | Effect | Phone | Address | Type | | | t Plan | ID | bhargavi | | | | | | / | | Dates | | | | | | Group | | | | | | + +--------+ +--------+ +---------+--------+ | [employer] | MEDICA | [id number] | 05/28/20 | [phone] | | Medica | | | [place] | | 19-Pre | 2 | | id | | | PLUS | | sent | | | | + +--------+ +--------+ +---------+--------+ | [employer] | IHS | [id number] | 01/26/20 | | | Indemn | | SERVICE | YELLOW | | 12-Pre | | | ity | | | [facility] | | sent | | | | + +--------+ +--------+ +---------+--------+ + +--------+ +--------+ + + | Guarantor Name | Accoun | Relation to | Date | Phone | Billing Address | | | t Type | Patient | of | | | | | | | | | | + +--------+ +--------+ + + | Gordy Zhu | Person | Self [birth year] | [address] | | | al/Fam | | 1986 | [phone] | [place] [address] | | | [place]ly | | | 4 (Home) | | + +--------+ +--------+ + + Advance Directives + + + + + | Type | Date Recorded | Patient | Explanation | | | | After School Driver | | + + + + + | Power of | | | | | Hha | | | | + + + + + | Advance | 10/05/2019 3:07 | | | | Directive | PM | | | + + + + +"
--- OUTSIDE RECORDS SUMMARY | ~2020-07-05 | XMS | Encounter Summary ---
Demographics + + + | Address | [address] | | | [place] [address] | + + + | Home Phone | | + + + | Preferred Language | Unknown | + + + | Marital Status | Single | + + + | Jain Affiliation | Unknown | + + + | Race | or | + + + | Ethnic Group | Not or | + + + Author + + + | Author | [facility] | | | and [place] | + + + | Organization | [facility] | | | [...] Team Providers + +------+ + | Care Epic Prelude Analyst Name | Role | Phone | + +------+ + | Isabel Cheung | PCP | | + +------+ + Reason for Visit Evaluate & Treat (Routine) +--------+ + + + + + | Status | Reason | Specialty | Diagnoses / | Referred By | Referred To | | | | | Procedures | Contact | Contact | +--------+ + + + + + | Closed | Specialty | Sleep | Diagnoses | Cayla, | [facility] | | | Services | Medicine | GERSON | MD Uma | Center [address] | | | Required | | (obstructive | [address] | [place] | | | | | sleep | [address] [place] | [place], | | | | | apnea) | [place], [place] | [place] [address] | | | | | Procedures | [id number] | Phone: | | | | | [facility] | Phone: | [phone] | | | | | STUDY, | [phone] | Fax: | | | | | UNATTENDED, | Fax: | [phone] | | | | | SIMUL RECORD | [phone] | | | | | | HR/O2 | | | | | | | SAT/RESP | | | | | | | FLOW/RESP | | | | | | | EFF HST | | | | | | | (10/02/19 @ | | | | | | | 1:30pm) | | | | | | | [place] | | | +--------+ + + + + + Encounter Details +--------+ + + + + | Date | Type | Department | Care Team | Description | +--------+ + + + + | 10/02/ | Hospital | [facility] | Uma Kulkarni MD | GERSON (obstructive | | 2019 - | Encounter | [facility] | [address] | sleep apnea) | | | | CENTER [address] | [place] | | | 10/03/ | | [place], [place] | [address] | | | 2019 | | [address] | | | | | | [phone] | | | +--------+ + + + [...] + + documented as of this encounter Medications at Time of Discharge + + + +---------+ + + | Medication | Sig | Dispensed | Refills | Start | End Date | | | | | | Date | | + + + +---------+ + + | ARIPiprazole | Take 10 mg by mouth | | 0 | | | | (ABILIFY) 10 mg | Daily. | | | | | | tablet | | | | | | + + + +---------+ + + | aspirin 81 MG | Take 81 mg by mouth | | 0 | | | | tablet | Daily. | | | | | + + + +---------+ + + | hydrOXYzine | Take 25 mg by mouth | | 0 | | | | pamoate (VISTARIL) | as needed for | | | | | | 25 mg capsule | Itching. | | | | | + + + +---------+ + + | metoprolol | Take 200 mg by mouth | | 0 | | | | succinate | Daily. | | | | | | (TOPROL-XL) 200 mg | | | | | | | ER tablet | | | | | | + + + +---------+ + + | traZODone | Take 50 mg by mouth | | 0 | | | | (DESYREL) 50 mg | nightly. | | | | | | tablet | | | | | | + + + +---------+ + + | gabapentin | Take 300 mg by mouth | | 0 | | | | (NEURONTIN) 300 mg | 3 times daily. | | | | 0 | | capsule | | | | | | + + + +---------+ + + | lisinopril | Take 1 tablet by | 90 | 3 | 08/29/20 | | | (PRINIVIL, ZESTRIL) | mouth Daily. | tablet | | 19 | 0 | | 20 mg tablet | | | | | | + + + +---------+ + + documented as of this encounter Procedure Notes Uma Kulkarni MD - 10/02/2019 1:30 PM PSTAssociated Order(s): SLEEP STUDY HOME SLEEP TEST Pre-Procedure Diagnose(s): GERSON (obstructive sleep apnea)Post-Procedure Diagnose(s): GERSON (obs tructive sleep apnea) Karuna Connors [facility] [place] [address] Unattended, Multiparameter, Sleep Apnea Test for Gordy Zhu performed on October 02. Identifying Information: Gordy Zhu is a 33 y.o. male who is referred for unattended, multi-parameter, sleep apnea test because of probable Obstructive Sleep Apnea. He has a his tory of morbid obesity, anxiety, bipolar disorder, atrial fibrillation, hypertension, alcoho l use disorder, presenting for evaluation of obstructive sleep apnea. BMI: 51 Technical Information: The study was performed on October 02, 2019 using the [employer] equipment with [employer] Version 11 Software. The study was hand scored and hand analyze d. The following physiologic parameters were monitored: snoring, body position, oxygen satur ation, heart rate, nasal airflow (PTAF), oral airflow (thermister) and thoracic and abdomina l effort (RIP belts). EEG was not monitored and thus sleep staging was not performed. The M onitoring Time is the recording time from lights off until lights on. A Monitoring Time sle ep efficiency of 100% was assumed for the purposes of calculating indices; this assumption c an result in a significant underestimation of disease severity. Because EEG was not monitore d, Respiratory Effort Related Arousals could not be enumerated; this can also result in unde restimation of disease severity. The sensitivity for Obstructive Sleep Apnea of this type of study is high but the specificity is low. Definitions (The AASM Manual for the Scoring of Sleep and Associated Events, Version 2.3; 2 016): Apnea: There is a drop in the peak signal excursion by 90% or greater of pre-event baselin e using an oronasal thermal sensor, or an alternative apnea sensor and the duration of the 9 0% or greater drop in sensor signal is greater than or equal to 10 seconds. Obstructive Apnea: Event associated with continued or increased inspiratory effort throug hout the entire period of absent airflow. Central Apnea: Event associated with absent inspiratory effort throughout the entire krysta od of absent airflow. Because EEG is not monitored, Central Apneas cannot be scored with any degree of reliability on this type of sleep study. Mixed Apnea: Event associated with absent inspiratory effort in the initial portion of th e event followed by resumption of inspiratory effort during the second portion of the event. Because EEG is not monitored, mixed apneas are not reliably scored on this type of study. Hypopnea: The peak signal excursions drop by 30% or more of pre-event baseline using nasal pressure (diagnostic study), PAP device flow (titration study), or an alternative hypopnea sensor (diagnostic study). The duration of the 30% or greater drop in signal excursion must last for 10 seconds or longer. The event is associated with a 3% or greater oxygen desaturat ion from pre-event baseline or the event is associated with an arousal. Respiratory Event Related Arousal: Because EEG is not recorded, Respiratory Event Related Arousal's cannot be enumerated. The Respiratory Event Index (TONY) is the term used to represent the frequency of apneas and hypopneas derived from Home Sleep Apnea Testing(HSAT). It is a surrogate for AHI. Results: Data collection commenced at 21:00 on October 02, 2019 and data collection termina kayleen at 05:39 on October 03, 2019. During the 519.5 minutes of index study time there were 202 obstructive apneas, 0 central apneas, 0 mixed apneas and 301 hypopneas. The TONY was 64.2 wh ich is severely elevated. Relative time in supine position was 5.2%. The events were worse fariha in the supine position with TONY of 85.3. Non-supine TONY was 63.3 and it was still sever ze elevated. Mean oxygen oxygen saturation was 92%, melo saturation was 72%, and patient spent 17.6 % o f time( 91.4 minutes) at or below 90%. 3 %Oxygen desaturation index was 57.7and was severely elevated. Average heart rate was 64 BPM. Interpretation: This home sleep apnea testing (HSAT) showed sleep apnea which was obstructi ve in nature, and it was severe in frequency of events, and severe in frequency of desaturat ions. Melo saturation was 72%, and patient spent 91.4 minutes with SPO2 at or below 90%. The study was technically an adequate study. Recommendations: 1. A trial of auto-CPAP at 5-15 cm H2O. 2. Weight management. Uma Kulkarni MD Portions of this chart may have been created with [employer] voice recognition software. Occasi onal wrong-word or sound-alike substitutions may have occurred due to the inherent young itations of voice recognition software. Please read the chart carefully and recognize, using context, where these substitutions have occurred. documented in this encounter Plan of Treatment +--------+---------+ + + + | Date | Type | Specialty | Care Team | Description | +--------+---------+ + + + | 08/06/ | Office | Sleep Medicine | Anupam Germain PA | | 2019 | Visit | | Shelley Tapia | | | | | | [place] | | | | | | [id number] | | | | | | | | +--------+---------+ + + + | 04/11/ | Office | Cardiology | Gerry Asif, | | | 2020 | Visit | | MD Shelley Mari | | | | | | [place], | | | | | | [place] [address] | | | | | | [phone] | | | | | | | | +--------+---------+ + + + documented as of this encounter Procedures + +--------+ + + + | Procedure Name | Priori | Date/Time | Associated Diagnosis | Comments | | | ty | | | | + +--------+ + + + | SLEEP STUDY HOME | Routin | 10/02/2019 | | Results for this | | SLEEP TEST | e | 1:30 PM | | procedure are in the | | | | PST | | results section. | + +--------+ + + + documented in this encounter Results Sleep study home sleep test (10/02/2019 1:30 PM PST) + + + | Narrative | Performed At | + + + | Uma Kulkarni | | | 10/06/2019 12:16 PM [facility] | | | [place] [address] Unattended, | | | Multiparameter, Sleep Apnea Test for Gordy Zhu performed on | | | October 02, 2019. Identifying Information: Gordy Zhu is a 33 | | | y.o. male who is referred for unattended, multi-parameter, sleep apnea | | | test because of probable Obstructive Sleep Apnea. He has a history of | | | morbid obesity, anxiety, bipolar disorder, atrial fibrillation, | | | hypertension, alcohol use disorder, presenting for evaluation of | | | obstructive sleep apnea.BMI: 51 Technical Information: The study was | | | performed on October 02, 2019 using the [facility] equipment | | | with [employer] Version 11 Software. The study was hand scored and hand | | | analyzed. The following physiologic parameters were monitored: | | | snoring, body position, oxygen saturation, heart rate, nasal airflow | | | (PTAF), oral airflow (thermister) and thoracic and abdominal effort | | | (RIP belts). EEG was not monitored and thus sleep staging was not | | | performed. The Monitoring Time is the recording time from lights off | | | until lights on. A Monitoring Time sleep efficiency of 100% was | | | assumed for the purposes of calculating indices; this assumption can | | | result in a significant underestimation of disease severity. Because | | | EEG was not monitored, Respiratory Effort Related Arousals could not | | | be enumerated; this can also result in underestimation of disease | | | severity. The sensitivity for Obstructive Sleep Apnea of this type of | | | study is high but the specificity is low. Definitions (The AASM | | | Manual for the Scoring of Sleep and Associated Events, Version 2.3; | | | 2016): Apnea: There is a drop in the peak signal excursion by 90% or | | | greater of pre-event baseline using an oronasal thermal sensor, or an | | | alternative apnea sensor and the duration of the 90% or greater drop | | | in sensor signal is greater than or equal to 10 seconds. Obstructive | | | Apnea: Event associated with continued or increased inspiratory | | | effort throughout the entire period of absent airflow. Central | | | Apnea: Event associated with absent inspiratory effort throughout the | | | entire period of absent airflow. Because EEG is not monitored, Central | | | Apneas cannot be scored with any degree of reliability on this type | | | of sleep study. Mixed Apnea: Event associated with absent | | | inspiratory effort in the initial portion of the event followed by | | | resumption of inspiratory effort during the second portion of the | | | event. Because EEG is not monitored, mixed apneas are not reliably | | | scored on this type of study. Hypopnea: The peak signal excursions | | | drop by 30% or more of pre-event baseline using nasal pressure | | | (diagnostic study), PAP device flow (titration study), or an | | | alternative hypopnea sensor (diagnostic study). The duration of the | | | 30% or greater drop in signal excursion must last for 10 seconds or | | | longer. The event is associated with a 3% or greater oxygen | | | desaturation from pre-event baseline or the event is associated with | | | an arousal. Respiratory Event Related Arousal: Because EEG is not | | | recorded, Respiratory Event Related Arousal's cannot be enumerated. | | | The Respiratory Event Index (TONY) is the term used to represent the | | | frequency of apneas and hypopneas derived from Home Sleep Apnea | | | Testing(HSAT). It is a surrogate for AHI. Results: Data collection | | | commenced at 21:00 on October 02, 2019 and data collection terminated | | | at 05:39 on October 03, 2019. During the 519.5 minutes of index study | | | time there were 202 obstructive apneas, 0 central apneas, 0 mixed | | | apneas and 301 hypopneas. The TONY was 64.2 which is severely elevated. | | | Relative time in supine position was 5.2%. The events were | | | worsened in the supine position with TONY of 85.3. Non-supine TONY | | | was 63.3 and it was still severely elevated.Mean oxygen oxygen | | | saturation was 92%, melo saturation was 72%, and patient spent 17.6 % | | | of time( 91.4 minutes) at or below 90%. 3 %Oxygen desaturation index | | | was 57.7and was severely elevated. Average heart rate was 64 BPM. | | | Interpretation: This home sleep apnea testing (HSAT) showed sleep | | | apnea which was obstructive in nature, and it was severe in frequency | | | of events, and severe in frequency of desaturations. Melo saturation | | | was 72%, and patient spent 91.4 minutes with SPO2 at or below 90%. | | | The study was technically an adequate study. Recommendations: 1. A | | | trial of auto-CPAP at 5-15 cm H2O. 2. Weight management. Uma | | | MD Cayla Portions of this chart may have been created with [employer] | | | voice recognition software. Occasional wrong-word or | | | | | | sound-alike | | | substitutions may have occurred due to the inherent limitations of | | | voice recognition software. Please read the chart carefully and | | | recognize, using context, where these substitutions have occurred. | | |and data collection terminated at 05:39 on October 03, 2019. | | |During the 519.5 minutes of index study time there were 202 | | |obstructive apneas, 0 central apneas, 0 mixed apneas and 301 | | |hypopneas. The TONY was 64.2 which is severely elevated. Relative | | |time in supine position was 5.2%. The events were worsened in | | |the supine position with TONY of 85.3. Non-supine TONY was 63.3 | | |and it was still severely elevated. | | |Mean oxygen oxygen saturation was 92%, melo saturation was 72%, | | |and patient spent 17.6 % of time( 91.4 minutes) at or below 90%. | | |3 %Oxygen desaturation index was 57.7and was severely elevated. | | |Average heart rate was 64 BPM. | | | | | |Interpretation: This home sleep apnea testing (HSAT) showed sleep | | |apnea which was obstructive in nature, and it was severe in | | |frequency of events, and severe in frequency of desaturations. | | |Melo saturation was 72%, and patient spent 91.4 minutes with | | |SPO2 at or below 90%. The study was technically an adequate | | |study. | | | | | | | | |Recommendations: | | |1. A trial of auto-CPAP at 5-15 cm H2O. | | |2. Weight management. | | | | | | | | | | | |Uma Kulkarni MD | | | | | |Portions of this chart may have been created with [employer] voice | | |recognition software. Occasional wrong-word or sound-alike | | |substitutions may have occurred due to the inherent limitations | | |of voice recognition software. Please read the chart carefully | | |and recognize, using context, where these substitutions have | | |occurred. | | + + + + + | Procedure Note | + + | Uma Kulkarni MD - 10/02/2019 1:30 PM [facility] | | [place], [place] [email or web address], Multiparameter, Sleep | | Apnea Test for Gordy Zhu performed on October 02, 2019.Identifying Information: | | Gordy Zhu is a 33 y.o. male who is referred for unattended, multi-parameter, | | sleep apnea test because of probable Obstructive Sleep Apnea. He has a history of morbid | | obesity, anxiety, bipolar disorder, atrial fibrillation, hypertension, alcohol use | | disorder, presenting for evaluation of obstructive sleep apnea.BMI: 51Technical | | Information: The study was performed on October 02, 2019 using the [employer] | | equipment with [employer] Version 11 Software. The study was hand scored and hand | | analyzed. The following physiologic parameters were monitored: snoring, body position, | | oxygen saturation, heart rate, nasal airflow (PTAF), oral airflow (thermister) and | | thoracic and abdominal effort (RIP belts). EEG was not monitored and thus sleep staging | | was not performed. The Monitoring Time is the recording time from lights off until | | lights on. A Monitoring Time sleep efficiency of 100% was assumed for the purposes of | | calculating indices; this assumption can result in a significant underestimation of | | disease severity. Because EEG was not monitored, Respiratory Effort Related Arousals | | could not be enumerated; this can also result in underestimation of disease severity. | | The sensitivity for Obstructive Sleep Apnea of this type of study is high but the | | specificity is low.Definitions (The AASM Manual for the Scoring of Sleep and Associated | | Events, Version 2.3; 2016): Apnea: There is a drop in the peak signal excursion by 90% | | or greater of pre-event baseline using an oronasal thermal sensor, or an alternative | | apnea sensor and the duration of the 90% or greater drop in sensor signal is greater | | than or equal to 10 seconds. Obstructive Apnea: Event associated with continued or | | increased inspiratory effort throughout the entire period of absent airflow. Central | | Apnea: Event associated with absent inspiratory effort throughout the entire period of | | absent airflow. Because EEG is not monitored, Central Apneas cannot be scored with any | | degree of reliability on this type of sleep study. Mixed Apnea: Event associated with | | absent inspiratory effort in the initial portion of the event followed by resumption of | | inspiratory effort during the second portion of the event. Because EEG is not monitored, | | mixed apneas are not reliably scored on this type of study. Hypopnea: The peak signal | | excursions drop by 30% or more of pre-event baseline using nasal pressure (diagnostic | | study), PAP device flow (titration study), or an alternative hypopnea sensor (diagnostic | | study). The duration of the 30% or greater drop in signal excursion must last for 10 | | seconds or longer. The event is associated with a 3% or greater oxygen desaturation from | | pre-event baseline or the event is associated with an arousal. Respiratory Event | | Related Arousal: Because EEG is not recorded, Respiratory Event Related Arousal's cannot | | be enumerated.The Respiratory Event Index (TONY) is the term used to represent the | | frequency of apneas and hypopneas derived from Home Sleep Apnea Testing(HSAT). It is a | | surrogate for AHI.Results: Data collection commenced at 21:00 on October 02, 2019 and | | data collection terminated at 05:39 on October 03, 2019. During the 519.5 minutes of | | index study time there were 202 obstructive apneas, 0 central apneas, 0 mixed apneas and | | 301 hypopneas. The TONY was 64.2 which is severely elevated. Relative time in supine | | position was 5.2%. The events were worsened in the supine position with TONY of 85.3. | | Non-supine TONY was 63.3 and it was still severely elevated.Mean oxygen oxygen | | saturation was 92%, melo saturation was 72%, and patient spent 17.6 % of time( 91.4 | | minutes) at or below 90%. 3 %Oxygen desaturation index was 57.7and was severely | | elevated. Average heart rate was 64 BPM. Interpretation: This home sleep apnea testing | | (HSAT) showed sleep apnea which was obstructive in nature, and it was severe in | | frequency of events, and severe in frequency of desaturations. Melo saturation was 72%, | | and patient spent 91.4 minutes with SPO2 at or below 90%. The study was technically | | an adequate study.Recommendations: 1. A trial of auto-CPAP at 5-15 cm H2O. 2. Weight | | management. Yarelis Kessler of this chart may have been created with [employer] | | voice recognition software. Occasional wrong-word or | | | | sound-alike | | substitutions may have occurred due to the inherent limitations of voice recognition | | software. Please read the chart carefully and recognize, using context, where these | | substitutions have occurred. | + + documented in this encounter Visit Diagnoses + + | Diagnosis | + + | GERSON (obstructive sleep apnea) Obstructive sleep apnea (adult) (pediatric) | + + documented in this encounter"
--- OUTSIDE RECORDS SUMMARY | ~2020-07-05 | XMS | Encounter Summary ---
Demographics + + + | Address | [address] | | | [place] [address] | + + + | Home Phone | | + + + | Preferred Language | Unknown | + + + | Marital Status | Single | + + + | Restorationist Affiliation | Unknown | + + + | Race | or | + + + | Ethnic Group | Not or | + + + Author + + + | Author | [facility] | | | and [place] | + + + | Organization | [facility] | | | [...] Team Providers + +------+ + | Care Planning Official Name | Role | Phone | + +------+ + | Isabel Cheung | PCP | | + +------+ + Encounter Details +--------+ + + + + | Date | Type | Department | Care Team | Description | +--------+ + + + + | 10/11/ | Abstract | [facility] | Provider, | | | 2020 | | CARDIOLOGY [address] | [address] | | | | | [place] [facility], | [address] | | | | | [place] [address] | [place] [address] | | | | | [phone] | | | +--------+ + + + [...] 2020 | Visit | | [address] | | | | | | [place] | | | | | | [id number] | | | | | | | | +--------+---------+ + + + | 04/11/ | Office | Cardiology | Gerry Asif, | | | 2020 | Visit | | [address] | | | | | | [place], | | | | | | [place] [address] | | | | | | [phone] | | | | | | | | +--------+---------+ + + + documented as of this encounter Procedures + +--------+ + + + | Procedure Name | Priori | Date/Time | Associated Diagnosis | Comments | | | ty | | | | + +--------+ + + + | EXTERNAL LAB: ADRI | Routin | 09/11/2019 | | Results for this | | | e | | | procedure are in the | | | | | | results section. | + +--------+ + + + | EXTERNAL LAB: | Routin | 09/11/2019 | | Results for this | | GLUCOSE | e | | | procedure are in the | | | | | | results section. | + +--------+ + + + | EXTERNAL LAB: ALT | Routin | 09/11/2019 | | Results for this | | | e | | | procedure are in the | | | | | | results section. | + +--------+ + + + | EXTERNAL LAB: AST | Routin | 09/11/2019 | | Results for this | | | e | | | procedure are in the | | | | | | results section. | + +--------+ + + + | EXTERNAL LAB: | Routin | 09/11/2019 | | Results for this | | ALKALINE PHOSPHATASE | e | | | procedure are in the | | | | | | results section. | + +--------+ + + + | EXTERNAL LAB: | Routin | 09/11/2019 | | Results for this | | BILIRUBIN, TOTAL | e | | | procedure are in the | | | | | | results section. | + +--------+ + + + | EXTERNAL LAB: | Routin | 09/11/2019 | | Results for this | | ALBUMIN | e | | | procedure are in the | | | | | | results section. | + +--------+ + + + | EXTERNAL LAB: | Routin | 09/11/2019 | | Results for this | | PROTEIN, TOTAL | e | | | procedure are in the | | | | | | results section. | + +--------+ + + + | EXTERNAL LAB: | Routin | 09/11/2019 | | Results for this | | CALCIUM | e | | | procedure are in the | | | | | | results section. | + +--------+ + + + | EXTERNAL LAB: CARBON | Routin | 09/11/2019 | | Results for this | | DIOXIDE | e | | | procedure are in the | | | | | | results section. | + +--------+ + + + | EXTERNAL LAB: | Routin | 09/11/2019 | | Results for this | | CHLORIDE | e | | | procedure are in the | | | | | | results section. | + +--------+ + + + | EXTERNAL LAB: | Routin | 09/11/2019 | | Results for this | | POTASSIUM | e | | | procedure are in the | | | | | | results section. | + +--------+ + + + | EXTERNAL LAB: SODIUM | Routin | 09/11/2019 | | Results for this | | | e | | | procedure are in the | | | | | | results section. | + +--------+ + + + | EXTERNAL LAB: | Routin | 09/11/2019 | | Results for this | | CREATININE | e | | | procedure are in the | | | | | | results section. | + +--------+ + + + | BASIC METABOLIC | Routin | 09/11/2019 | | Results for this | | PANEL | e | | | procedure are in the | | | | | | results section. | + +--------+ + + + documented in this encounter Results Basic Metabolic Panel (09/11/2019) + +-------+ + + + | Component | Value | Ref Range | Performed | Pathologist | | | | | At | Signature | + +-------+ + + + | Anion Gap | 17 | 14 - 22 mmol/L | | | + +-------+ + + + | Bun/Creatin | 12.5 | | | | | ine | | | | | + +-------+ + + + + + | Specimen | + + | Blood | + + External Lab: BUN (09/11/2019) + +-------+ + + + | Component | Value | Ref Range | Performed | Pathologist | | | | | At | Signature | + +-------+ + + + | BUN, | 10 | 8 - 25 | EXTERNAL | | | External | | | LAB | | + +-------+ + + + + +---------+ + + | Performing | Address | City/State/Zipcode | Phone Number | | Organization | | | | + +---------+ + + | EXTERNAL LAB | | | | + +---------+ + + External Lab: Glucose (09/11/2019) + +-------+ + + + | Component | Value | Ref Range | Performed | Pathologist | | | | | At | Signature | + +-------+ + + + | Glucose, | 94 | 65 - 99 | EXTERNAL | | | External | | | LAB | | + +-------+ + + + + +---------+ + + | Performing | Address | City/State/Zipcode | Phone Number | | Organization | | | | + +---------+ + + | EXTERNAL LAB | | | | + +---------+ + + External Lab: ALT (09/11/2019) + +-------+ + + + | Component | Value | Ref Range | Performed | Pathologist | | | | | At | Signature | + +-------+ + + + | ALT, | 39 | 0 - 41 | EXTERNAL | | | External | | | LAB | | + +-------+ + + + + +---------+ + + | Performing | Address | City/State/Zipcode | Phone Number | | Organization | | | | + +---------+ + + | EXTERNAL LAB | | | | + +---------+ + + External Lab: AST (09/11/2019) + +-------+ + + + | Component | Value | Ref Range | Performed | Pathologist | | | | | At | Signature | + +-------+ + + + | AST, | 26 | 0 - 40 | EXTERNAL | | | External | | | LAB | | + +-------+ + + + + +---------+ + + | Performing | Address | City/State/Zipcode | Phone Number | | Organization | | | | + +---------+ + + | EXTERNAL LAB | | | | + +---------+ + + External Lab: Alkaline Phosphatase (09/11/2019) + +-------+ + + + | Component | Value | Ref Range | Performed | Pathologist | | | | | At | Signature | + +-------+ + + + | ALP, | 79 | 40 - 129 | EXTERNAL | | | External | | | LAB | | + +-------+ + + + + +---------+ + + | Performing | Address | City/State/Zipcode | Phone Number | | Organization | | | | + +---------+ + + | EXTERNAL LAB | | | | + +---------+ + + External Lab: Bilirubin, Total (09/11/2019) + +-------+ + + + | Component | Value | Ref Range | Performed | Pathologist | | | | | At | Signature | + +-------+ + + + | Bilirubin, | 0.4 | 0.1 - 1.5 | EXTERNAL | | | Total, | | | LAB | | | External | | | | | + +-------+ + + + + +---------+ + + | Performing | Address | City/State/Zipcode | Phone Number | | Organization | | | | + +---------+ + + | EXTERNAL LAB | | | | + +---------+ + + External Lab: Albumin (09/11/2019) + +-------+ + + + | Component | Value | Ref Range | Performed | Pathologist | | | | | At | Signature | + +-------+ + + + | Albumin, | 4.3 | 3.5 - 5.2 | EXTERNAL | | | External | | | LAB | | + +-------+ + + + + +---------+ + + | Performing | Address | City/State/Zipcode | Phone Number | | Organization | | | | + +---------+ + + | EXTERNAL LAB | | | | + +---------+ + + External Lab: Protein, Total (09/11/2019) + +-------+ + + + | Component | Value | Ref Range | Performed | Pathologist | | | | | At | Signature | + +-------+ + + + | Protein, | 8.2 | 6.2 - 8.2 | EXTERNAL | | | Total, | | | LAB | | | External | | | | | + +-------+ + + + + +---------+ + + | Performing | Address | City/State/Zipcode | Phone Number | | Organization | | | | + +---------+ + + | EXTERNAL LAB | | | | + +---------+ + + External Lab: Calcium (09/11/2019) + +-------+ + + + | Component | Value | Ref Range | Performed | Pathologist | | | | | At | Signature | + +-------+ + + + | Calcium, | 9.4 | 8.5 - 10.2 | EXTERNAL | | | External | | | LAB | | + +-------+ + + + + +---------+ + + | Performing | Address | City/State/Zipcode | Phone Number | | Organization | | | | + +---------+ + + | EXTERNAL LAB | | | | + +---------+ + + External Lab: Carbon Dioxide (09/11/2019) + +-------+ + + + | Component | Value | Ref Range | Performed | Pathologist | | | | | At | Signature | + +-------+ + + + | Carbon | 26 | 22 - 29 | EXTERNAL | | | Dioxide, | | | LAB | | | External | | | | | + +-------+ + + + + +---------+ + + | Performing | Address | City/State/Zipcode | Phone Number | | Organization | | | | + +---------+ + + | EXTERNAL LAB | | | | + +---------+ + + External Lab: Chloride (09/11/2019) + +-------+ + + + | Component | Value | Ref Range | Performed | Pathologist | | | | | At | Signature | + +-------+ + + + | Chloride, | 98 | 97 - 107 | EXTERNAL | | | External | | | LAB | | + +-------+ + + + + +---------+ + + | Performing | Address | City/State/Zipcode | Phone Number | | Organization | | | | + +---------+ + + | EXTERNAL LAB | | | | + +---------+ + + External Lab: Potassium (09/11/2019) + +-------+ + + + | Component | Value | Ref Range | Performed | Pathologist | | | | | At | Signature | + +-------+ + + + | Potassium, | 4.2 | 3.5 - 5.3 | EXTERNAL | | | External | | | LAB | | + +-------+ + + + + +---------+ + + | Performing | Address | City/State/Zipcode | Phone Number | | Organization | | | | + +---------+ + + | EXTERNAL LAB | | | | + +---------+ + + External Lab: Sodium (09/11/2019) + +-------+ + + + | Component | Value | Ref Range | Performed | Pathologist | | | | | At | Signature | + +-------+ + + + | Sodium, | 137 | 135 - 145 | EXTERNAL | | | External | | | LAB | | + +-------+ + + + + +---------+ + + | Performing | Address | City/State/Zipcode | Phone Number | | Organization | | | | + +---------+ + + | EXTERNAL LAB | | | | + +---------+ + + External Lab: Creatinine (09/11/2019) + +-------+ + + + | Component | Value | Ref Range | Performed | Pathologist | | | | | At | Signature | + +-------+ + + + | Creatinine, | 0.80 | 0.7 - 1.3 | EXTERNAL | | | External | | | LAB | | + +-------+ + + + + + | Specimen | + + | Blood | + + + +---------+ + + | Performing | Address | City/State/Zipcode | Phone Number | | Organization | | | | + +---------+ + + | EXTERNAL LAB | | | | + +---------+ + + documented in this encounter Visit Diagnoses Not on filedocumented in this encounter"
--- OUTSIDE RECORDS SUMMARY | ~2020-07-05 | XMS | Encounter Summary ---
Demographics + + + | Address | [address] | | | [place] [address] | + + + | Home Phone | | + + + | Preferred Language | Unknown | + + + | Marital Status | Single | + + + | Catholic Affiliation | Unknown | + + + | Race | or | + + + | Ethnic Group | Not or | + + + Author + + + | Author | [facility] | | | and [place] | + + + | Organization | [facility] | | | [...] Team Providers + +------+ + | Care Whipped Topping Finisher Name | Role | Phone | + +------+ + | Isabel Cheung | PCP | | + +------+ + Reason for Visit + + + | Reason | Comments | + + + | Follow-up | | + + + | Atrial Fibrillation | | + + + | Congestive Heart | | | Failure | | + + + Follow Up (Routine) +--------+--------+ + + + + | Status | Reason | Specialty | Diagnoses / | Referred By | Referred To | | | | | Procedures | Contact | Contact | +--------+--------+ + + + + | Closed | | Cardiology | Diagnoses | Jonatan, | Yefri, | | | | | Essential | [facility] | MD Gerry | | | | | (primary) | [id number] | [address] | | | | | hypertension | [address] | [address] [address] | | | | | | [place], | [place], | | | | | Unspecified | [place] [address] | [place] [address] | | | | | atrial | Phone: | Phone: | | | | | fibrillation | [phone] | [phone] | | | | | (HCC) | Fax: | Fax: | | | | | Procedures | [phone] | [phone] | | | | | FUP | | | +--------+--------+ + + + + Encounter Details +--------+ + + + + | Date | Type | Department | Care Team | Description | +--------+ + + + + | 04/11/ | Virtual | [facility] | Gerry Asif, | Atrial fibrillation, | | 2019 | Office | CARDIOLOGY [address] | [address] | unspecified type | | | Visit | [place], | [place], | ([facility]) (Primary Dx); | | | | [place] [address] | [place] [address] | Hypertension, | | | | [phone] | [phone] | essential | | | | | | | +--------+ + [...] + + documented as of this encounter Last Filed Vital Signs + +---------+ + + | Vital Sign | Reading | Time Taken | Comments | + +---------+ + + | Blood Pressure | 132/75 | 04/11/2020 2:40 PM | | | | | PDT | | + +---------+ + + | Pulse | 73 | 04/11/2020 2:40 PM | | | | | PDT | | + +---------+ + + | Temperature | - | - | | + +---------+ + + | Respiratory Rate | - | - | | + +---------+ + + | Oxygen Saturation | - | - | | + +---------+ + + | Inhaled Oxygen | - | - | | | Concentration | | | | + +---------+ + + | Weight | - | - | | + +---------+ + + | Height | - | - | | + +---------+ + + | Body Mass Index | - | - | | + +---------+ + + documented in this encounter Progress Notes Gerry Asif MD - 04/11/2020 2:30 PM PDTFormatting of this note might be different f rom the original. This exam was initially conducted via a secure 256-bit AES encrypted bidirectional video se miCabon. Service was provided [id number] with the patient via interactive videoconferencing Time Based Coding Total time (in minutes) including non [id number] time (reviewing records, documentation, etc..) 20 minutes You have chosen to receive care through the use of telemedicine. Telemedicine enables [facility] providers at different locations to provide safe, effective and convenient care throu gh the use of technology. As with any health care service, there are risks associated with t he use of telemedicine, including equipment failure, poor image resolution and information s ecurity issues. Do you understand the risks and benefits of telemedicine as I have explained them to you? " Yes" Have your questions regarding telemedicine been answered? "Yes" Participant is currently at home Do you consent to the use of telemedicine in your medical care today? Yes. Last question, I need to confirm where are you physically located right now? Answer: Patient confirms they are located in a state where I, Gerry Asif MD, am lice michael. PATIENT NAME: Gordy Zhu : 1985: AGE: 34 y.o. PRIMARY CARE: [facility] OUTPATIENT FOLLOW UP VISIT Date of Service: 04/11/2020 HISTORY OF PRESENT ILLNESS: Gordy Zhu is a 34 y.o. male with a history of atrial fibrillation, heart failure wit h mid range ejection fraction, morbidly obese, alcoholism and essential hypertension. He is being seen today for follow up. He was last seen 10/12/2019 at which time patient was to increase lisinopril to 20 mg twice a day and check blood pressure for two weeks. Since that time, patient continues to stay sob er from alcohol. He no longer has to take Gabapentin. Today, patient is feeling good and den ies any cardiac symptoms. 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 There is no chest pain or chest discomfort both at rest and on exer tion. Patient denies breathlessness. There is no palpitations, dizziness or lightheadedness. There is no ankle or leg swelling. Patient can sleep on one pillow at night without difficu lty breathing. MEDICAL, SURGICAL, AND PERSONAL HISTORY Past Medical, Surgical, Family, and Social History are reviewed in EPIC. CURRENT PROBLEMS Patient Active Problem List Diagnosis Atrial fibrillation Hypertension, essential Morbid obesity Alcoholic Bipolar disorder Anxiety Snoring Sleep apnea CURRENT MEDICATIONS Current Outpatient Medications Medication Sig Dispense Refill ARIPiprazole (ABILIFY) 10 mg tablet Take 10 mg by mouth Daily. aspirin 81 MG tablet Take 81 mg by mouth Daily. Cyanocobalamin (VITAMIN B 12 PO) Take by mouth. hydrOXYzine pamoate (VISTARIL) 25 mg capsule Take 25 mg by mouth as needed for Itching. lisinopril (PRINIVIL, ZESTRIL) 20 mg tablet Take 1 tablet by mouth 2 times daily. 180 t ablet 3 metoprolol succinate (TOPROL-XL) 200 mg ER tablet Take 200 mg by mouth Daily. traZODone (DESYREL) 50 mg tablet Take 50 mg by mouth nightly. VITAMIN D PO Take by mouth. No current facility-administered medications for this visit. ALLERGIES No Known Allergies ROS Review of Systems Constitutional: Negative for malaise/fatigue. Respiratory: Negative for shortness of breath. Cardiovascular: Negative for chest pain, palpitations and leg swelling. Neurological: Negative for dizziness and weakness. Lightheaded = No OBJECTIVE: PHYSICAL EXAM BP 132/75 | Pulse 73 Physical Exam Constitutional: He is oriented to person, place, and time. He appears well-developed and we ll-nourished. No distress. Male individual, no acute distress. Pulmonary/Chest: No respiratory distress. Musculoskeletal: General: No edema. Neurological: He is alert and oriented to person, place, and time. Psychiatric: He has a normal mood and affect. LAB RESULTS reviewed during visit today primarily from [facility]: LIPID Lab Results Component Value Date LDLEX 105 (A) 09/11/2019 HDLEX 35 (A) 09/11/2019 TRIGEX 100 09/11/2019 CHOLEX 159 09/11/2019 CHEMISTRY Lab Results Component Value Date GLUEX 94 09/11/2019 NAEX 137 09/11/2019 KEX 4.2 09/11/2019 CLEX 98 09/11/2019 CO2EX 26 09/11/2019 ASTEX 26 09/11/2019 ALTEX 39 09/11/2019 CREEX 0.80 09/11/2019 HEMATOLOGY Lab Results Component Value Date WBCEX 8.76 09/11/2019 HGBEX 16.01 09/11/2019 HCTEX 47.73 09/11/2019 PLTEX 409 09/11/2019 I reviewed records from [facility] for office visit on 10/11/2019. Above data and testing is reviewed this visit; testing below is historical data unless othe rwise specified. ASSESSMENT: 1. Atrial fibrillation with rapid ventricular response A. Patient was in his usual state of health until 06/26/2019, he was admitted to [facility] for new onset atrial fibrillation with RVR seen by Jayde olvera MD. At that time, patient was having palpitations and a heart rate as high as 180's. H e was then started on aspirin 81 mg, metoprolol 200 mg and lisinopril 10 mg. B. Echocardiogram on 10/05/19 shows this is a technically limited study due to a poor acoustic windows secondary to body habitus, definity contrast agent was utilized, wendy l left ventricular size with a mild concentric left ventricular hypertrophy, left ventricula r systolic function is preserved. LVEF is 65%, not well visualized valvular structure, norm al right-sided pressure, normal IVC with a normal respiratory collapse. C. Today, patient is doing well from cardiac standpoint. He is asymptomatic and physicall y active. There is no signs and symptoms of overt congestive heart failure. He is in a cla ss I of [place] [employer] functional class. There is no fluid retention on physica l examination. His risks for stroke include: Hx of HTN (1). His CBH0IA3-FHCa score is 1, which gives an estimated 1.3% risk of stroke per year in atrial fibrillation. His bleeding risks include: HTN (1). His HASBLED score is 0-1, which confers a low risk (1-3.4%) risk of ble ed per year. He is taking aspirin. 2. Heart failure with recovery ejection fraction A. Echocardiogram shows an EF of 40-45%. B. Well compensated. 3. Essential hypertension A. Today, his blood pressure is within target. 4. Morbidly obese; A. Today, patient reports loosing weight and being physically active. 5. Alcoholism; A. Patient remains sober. 6. Sleep apnea A. He is scheduled for sleep consult on 09/11/2019. B. Sleep study shows this home sleep apnea testing 10/02/2019 showed sleep apnea which was o bstructive in nature, and it was severe in frequency of events, and severe in frequency of d esaturations. Melo saturation was 72%, and patient spent 91.4 minutes with SPO2 at or belo w 90%. The study was technically an adequate C. He has not picked up his CPAP machine due to COVID but they are working on it. PLAN: 1. Today, patient is doing well from cardiac standpoint. He will continue with current medi ruby regimen. 2. I recommend a therapeutic lifestyle change including walking 30 minutes a day, choosing healthy choices of diet , including DASH diet, weight reduction and 7 hours of high quality sleep a night. 3. Follow-up in one year or sooner with concerns. I, Vickie Kumar, am acting as a scribe on behalf of, and in the presence of Gerry malhotra MD. I have reviewed and edited this note. Vickie Kumar, Glass Cleaning Machine Tender 04/11/2020 I, Gerry Asif MD, personally performed the services described in this documentation, as scribed in my presence and it is both accurate and complete. Vickie Kumar, Med Ass t 04/11/2020 2:40 PM PDT Electronically signed by: Gerry Asif MD [facility] 04/11/2020 Portions of this chart may have been created with 1DayLater voice recognition software. Occasi onal wrong-word or sound-alike substitutions may have occurred due to the inherent young itations of voice recognition software. Please read the chart carefully and recognize, using context, where these substitutions have occurred documented in this encounter Plan of Treatment [...] [place] | | | | | | [id number] | | | | | | | | +--------+---------+ + + + | 04/11/ | Office | Cardiology | Gerry Asif, | | | 2020 | Visit | | [address] [place] | | | | | | [place], | | | | | | [place] [address] | | | | | | [phone] | | | | | | | | +--------+---------+ + + + documented as of this encounter Visit Diagnoses + + | Diagnosis | + + | Atrial fibrillation, unspecified type (HCC) - Primary | + + | Hypertension, essential Unspecified essential hypertension | + + documented in this encounter
--- OUTSIDE RECORDS SUMMARY | ~2020-07-05 | XMS | Encounter Summary ---
Demographics + + + | Address | [address] | | | [place] [address] | + + + | Home Phone | | + + + | Preferred Language | Unknown | + + + | Marital Status | Single | + + + | Baptist Affiliation | Unknown | + + + [...] Team Providers + +------+ + | Care Tool Polishing Machine Operator Name | Role | Phone | + +------+ + | Isabel Cheung | PCP | | + +------+ + Reason for Visit + + + | Reason | Comments | + + + | CPAP Follow Up | Sleep Resource | + + + Evaluate & Treat (Routine) +--------+--------+ + + + + | Status | Reason | Specialty | Diagnoses / | Referred By | Referred To | | | | | Procedures | Contact | Contact | +--------+--------+ + + + + | Closed | | Sleep | Diagnoses | Jonatan | [place] | | | | Medicine | Obstructive | YOLANDA Hall | [facility] | | | | | sleep apnea | [address] | Disorder 401 | | | | | (adult) | CHANTAL LOZANO | [address] | | | | | (pediatric) | [place], | [place], | | | | | CPAP FOLLOW | [place] [address] | [place] [address] | | | | | UP RYANN | Phone: | Phone: | | | | | EQUIP/MASK-P | [phone] | [phone] | | | | | T WILL CALL | Fax: | Fax: | | | | | YH TO GET | [phone] | [phone] | | | | | REF | | | | | | | Procedures | | | | | | | CLINICAL | | | | | | | SUPPORT | | | +--------+--------+ + + + + Encounter Details +--------+ + + + + | Date | Type | Department | Care Team | Description | +--------+ + + + + | 06/12/ | Clinical | [facility] | Dewayne Saenz MD | GERSON (obstructive | | 2020 | Support | SLEEP DISORDER 401 | [address] | sleep apnea) | | | | [address] [place] | [place] | (Primary Dx) | | | | [place] [address] | [address] | | | | | [phone] | | | +--------+ + + + [...] this encounter Last Filed Vital Signs + + + + + | Vital Sign | Reading | Time Taken | Comments | + + + + + | Blood Pressure | 146/86 | 06/12/2020 1:55 PM | | | | | PDT | | + + + + + | Pulse | 56 | 06/12/2020 1:55 PM | | | | | PDT | | + + + + + | Temperature | - | - | | + + + + + | Respiratory Rate | 16 | 06/12/2020 1:55 PM | | | | | PDT | | + + + + + | Oxygen Saturation | 98% | 06/12/2020 1:55 PM | | | | | PDT | | + + + + + | Inhaled Oxygen | - | - | | | Concentration | | | | + + + + + | Weight | 149.5 kg (329 lb 9.4 | 06/12/2020 1:55 PM | | | | oz) | PDT | | + + + + + | Height | 182.9 cm (6') | 06/12/2020 1:55 PM | | | | | PDT | | + + + + + | Body Mass Index | 44.7 | 06/12/2020 1:55 PM | | | | | PDT | | + + + + + documented in this encounter Progress Notes Qasim Willett Neurodiagnostic Tech - 06/12/2020 2:00 PM PDTFormatting of this note migh t be different from the original. Clinical Sleep Support Visit Patient:Gordy Zhu Date of :1985 Encounter Date:06/12/2020 Reason for visit: Chief Complaint Patient presents with CPAP Follow Up Sleep Resource Patient was last seen in our clinic on 10/16/[address] Kulkarni, referred to us by Dr. Jluis jonas . PAP was ordered on 10/16/2019 from [facility] . Patient has been using PAP for 2 out of 27 nights, wearing the ResMed S-10 auto PAP with settings of 5 to 15, wearing the F-20 m ask. ~ Vital signs were: BP 146/86 | Pulse 56 | Resp 16 | Ht 1.829 m (6') | Wt (!) 149.5 kg (329 lb 9.4 oz) | SpO2 98% | BMI 44.70 kg/m ~ Patient is doing poor with toleration and compliance. He was delayed in getting his PAP d ue to Covid and other issues for months and arrived today in confusion on the equipment. We reviewed everything in detail including his sleep study results. I did put him on a 2 week d esensitization plan and he agreed to call me in 1 week for an update on progress. ~ Overall leak is 8.4 ~ Compliance >4 hours =0% with AHI of 1 ~ Average daily usage of 0:02 Original date of study was on 10/02/2019 that showed an AHI of 64.2 with a O2 Melo of 72% wi th 91.4 minutes < 90%. Sleep hygiene reviewed with the patient included a review of his sleep wake cycle and circa dina rhythms, sleep study results and today's PAP download, all PAP instructions for use inc luding settings, mask fit, humidification and cleaning with a reminder to wear PAP at all ti mes during sleep. Plan for continuous PAP use: 1. Wear PAP any time you are sleeping 2. Continue with PAP indefinitely 3. Follow up with Anupam HENDRICKS in 4 weeks (due to schedule) with equipment Qasim Willett RPSGT CSE doc umented in this encounter Plan of Treatment +--------+---------+ + + + | Date | Type | Specialty | Care Team | Description | +--------+---------+ + + + | 08/06/ | Office | Sleep Medicine | Anupam Germain PA | | | 2019 | Visit | | [address] | | | | | | [place] | | | | | | [address] | | | | | | | | +--------+---------+ + + + | 04/11/ | Office | Cardiology | Gerry Asif, | | | 2020 | Visit | | MD [address] | | | | | | [place] | | | | | | [place] [address] | | | | | | [phone] | | | | | | | | +--------+---------+ + + + documented as of this encounter Visit Diagnoses + + | Diagnosis | + + | GERSON (obstructive sleep apnea) - Primary Obstructive sleep apnea (adult) (pediatric) | + + documented in this encounter"
--- OUTSIDE RECORDS SUMMARY | ~2020-07-05 | XMS | Encounter Summary ---
Demographics + + + | Address | [address] | | | [place] [address] | + + + | Home Phone | | + + + | Preferred Language | Unknown | + + + | Marital Status | Single | + + + | Faith Affiliation | Unknown | + + + | Race | or | + + + | Ethnic Group | Not or | + + + Author + + + | Author | [facility] | | | and [place] | + + + | Organization | [facility] | | | and [...] Team Providers + +------+ + | Care Assembler Brazer Name | Role | Phone | + +------+ + | Isabel Cheung | PCP | | + +------+ + Reason for Referral Evaluate & Treat (Routine) +--------+ + + [...] | (obstructive | [address] | [place] | | | | | sleep | [place] | [place], | | | | | apnea) | [place], [place] | [place] [address] | | | | | Procedures | [address] | Phone: | | | | | [place] SLEEP | Phone: | [phone] | | | | | STUDY, | [phone] | Fax: | | | | | UNATTENDED, | Fax: | [phone] | | | | | SIMUL RECORD | [phone] | | | | | | HR/O2 [...] | +--------+ + + + + + Reason for Visit +---------+ + | Reason | Comments | +---------+ + | Consult | | +---------+ + Evaluate & Treat (Routine) +--------+--------+ + + + + | Status | Reason | Specialty | Diagnoses / | Referred By | Referred To | | | | | Procedures | Contact | Contact | +--------+--------+ + + + + | Closed | | Psychiatry & | Diagnoses | Jonatan, | Cayla, | | | | Neurology - | Obstructive | YOLANDA Hall | MD Uma | | | | Sleep | sleep apnea | [address] | [address] | | | | Medicine / | (adult) | CHANTAL LOZANO | [address] [place] | | | | Sleep | (pediatric) | [place] | [place] | | | | Medicine | consult, | [place] [address] | [address] Phone: | | | | | [email or web address], no | Phone: | [phone] | | | | | ss, no | [phone] | Fax: | | | | | cpap/AO | Fax: | [phone] | | | | | Procedures | [phone] | | | | | | NEW PATIENT | | | +--------+--------+ + + + + Encounter Details +--------+---------+ + + + | Date | Type | Department | Care Team | Description | +--------+---------+ + + + | 09/11/ | Office | [facility] | Uma Kulkarni MD | GERSON (obstructive | | 2019 | Visit | SLEEP DISORDER [address] | [address] | sleep apnea) | | | | [place] | [place] | (Primary Dx) | | | | [place] [address] | [id number] | | | | | [phone] | | | +--------+---------+ + + + Social History + +-------+ [...] + + + | Blood Pressure | 150/100 | 09/11/2019 2:49 PM | | | | | PST | | + + + + + | Pulse | 101 | 09/11/2019 2:49 PM | | | | | PST | | + + + + + | Temperature | - | - | | + + + + + | Respiratory Rate | 18 | 09/11/2019 2:49 PM | | | | | PST | | + + + + + | Oxygen Saturation | 94% | 09/11/2019 2:49 PM | | | | | PST | | + + + + + | Inhaled Oxygen | - | - | | | Concentration | | | | + + + + + | Weight | 168.1 kg (370 lb 9.5 | 09/11/2019 2:49 PM | | | | oz) | PST | | + + + + + | Height | 181.6 cm (5' 11.5") | 09/11/2019 2:49 PM | | | | | PST | | + + + + + | Body Mass Index | 50.97 | 09/11/2019 2:49 PM | | | | | PST | | + + + + + documented in this encounter Patient Instructions Patient Instructions Uma Kulkarni MD - 09/11/2019 3:00 PM PSTPlease: - Schedule your sleep study. An appointment will be made a few days after the sleep study s o that we can discuss the results of the sleep study with you to determine how to best help you with your sleep issues. It was very nice meeting you today, and thank you for letting me take care of you. documented in this encounter Progress Notes Uma Kulkarni MD - 09/11/2019 3:00 PM PST ID/CC: We are asked to seeJeanerozina Zhu referred for consultation from YOLANDA Mohan or evaluation of obstructive sleep apnea. Gordy Zhu is a 33 y.o. year male old with history of morbid obesity, anxiety, bipo lar disorder, atrial fibrillation, hypertension, alcohol use disorder, presenting for evalua tion of obstructive sleep apnea. Mr. Zhu has snored since he was a child. For the pst 10 years he has been told that h e stops breathing during sleep. Was drinking heavily since age 19 until 90 days ago when he was diagnosed with atrial fibrillation and was told that his drinking issue was the main co ntributing factor. He sleeps on his back he sometimes feels that he doesn't get enough air. He usually sleeps on his stomach and with his neck exteremly turned to the side. He attributes to [employer] for a long time. Bed is flat. He has not worked for the past couple of months since he was diagnosed with atrial fibrilla tion. 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 Since He doesn't have a schedule, he takes 2-3 hours of nap during the day. When he worked, he would go to bed at 9 PM and would wake up between 4 :30 and 5 AM. Now he goes to bed at 11:30 PM. He usually falls asleep quickly. He wakes u p between 5:30 and 6 AM. For the past couple of months, he sometimes wakes up with anxiety in the Morning. He never feels rested in the morning. He wakes up at least 2-3 times for urination. He s ays he drinks constantly through the day and night. It could be water, juices or soda. He denies awakening with heartburn or headaches. He sometimes wakes up with dry mouth at n ight. Is tired, but when he worked he has difficulty staying awake. ? Neligh Sleepiness Scale: 12 out of 24 ( score >11 clinnically significant for sleepiness ). ? Patient denies: drowsy driving. ? - Insomnia Severity Index Score: 22 out of 28, suggesting severe insomnia. 0-7 no clinically significant. 8-14 subthreshold insomnia 15-21 moderate insomnia 22-28 severe insomnia ADDITIONAL DATA: ? Gale Depression Inventory: 28, consistent with moderate depression. He has some chronic passive suicidal thoughts with no intention or plan to kill himself. He has supportive fami ly. His primary care physician is aware of his mental health issues. ? Gale Anxiety Inventory: 22 ? SF-36v2: Significant decline in All subscales but. PF PAST MEDICAL HISTORY Past Medical History: Diagnosis Date Alcoholic ([facility]) 08/22/2019 Anxiety 08/22/2019 Atrial fibrillation ([facility]) 08/22/2019 Bipolar disorder ([facility]) 08/22/2019 Hypertension, essential 08/22/2019 Morbid obesity ([facility]) 08/22/2019 Sleep apnea 08/22/2019 Snoring 08/22/2019 PAST SURGICAL HISTORY No past surgical history on file. ALLERGIES No Known Allergies CURRENT MEDICATIONS Prior to Admission medications Medication Sig Start Date End Date Taking? Authorizing Provider ARIPiprazole (ABILIFY) 10 mg tablet Take 10 mg by mouth Daily. Historical Provider, aspirin 81 MG tablet Take 81 mg by mouth Daily. Historical Provider, gabapentin (NEURONTIN) 300 mg capsule Take 300 mg by mouth 3 times daily. Historical Pro vider, hydrOXYzine pamoate (VISTARIL) 25 mg capsule Take 25 mg by mouth as needed for Itching. Historical Provider, lisinopril (PRINIVIL, ZESTRIL) 20 mg tablet Take 1 tablet by mouth Daily. 08/29/19 Gerry Asif MD metoprolol succinate (TOPROL-XL) 200 mg ER tablet Take 200 mg by mouth Daily. Historical Provider, traZODone (DESYREL) 50 mg tablet Take 50 mg by mouth nightly. Historical Provider, SOCIAL HISTORY - Lives with his mom. - ETOH: see hpi - Smoking: Never. - Other substances: none - Caffeine use: 1-2 cups of coffee per day. He drinks soda almost every day, and 1-2 cans per day. He is hoping to cut back on this over time. - Exercise: very active and he worked. - FAMILY HISTORY His mother snores. REVIEW OF SYSTEMS Constitutional: + fatigue ENT: No nasal or sinus congestion. Card: No exertional substernal chest heaviness, Resp: No cough, No wheezing GI: No diarrhea, or constipation, acid reflux : + nocturia MS: No back pain or neck pain Neuro: No headaches Psych: + depression, + anxiety Heme: No easy bruising or prolonged bleeding. PHYSICAL EXAMINATION BP (!) 150/100 | Pulse 101 | Resp 18 | Ht 1.816 m (5' 11.5") | Wt (!) 168.1 kg (370 lb 9.5 oz) | SpO2 94% | BMI 50.97 kg/m , Neck Measurement: 21 in GEN: pleasant, NAD HEENT: Sclerae anicteric. No ptosis. Oropharyngeal exam reveals Modified Mallampati grade4 airway with 2+ tonsils. Tongue does not have scalloping. . Patient does have a high arched palate. small mouth. CV: RRR, no m/r/g RESP: CTAB, no w/r/r EXT: No clubbing/cyanosis. NEURO: A&Ox3, speech fluent. face symmetric, uvula/tongue midline. . Normal casual gait. PSYCH: Appropriate affect. ASSESSMENT AND PLAN GERSON: This patient has several symptoms and risk factors for obstructive sleep apnea. I dis cussed them, and the pathophysiology of sleep apnea today, associated risks including heart attack and stroke with untreated severe sleep apnea, and association between obstructive sle ep apnea and hypertension, nocturia, GERD, headaches, and mood and memory problems. discuss ed diagnosis via polysomnography / vvt-vs-bzimbr sleep testing. Today, I ordered a home sle ep study, but informed him/ that if it was inconclusive, we will have to confirm it with perico gnostic polysomnography. I also discussed treatment options for sleep apnea, including CPA P (gold standard), weight loss, mandibular advancement device, and surgery. An appointment w ill be made a few days after the sleep study so that we can discuss the results of the sleep study with patient. Once his sleep apnea is treated and he starts walking again, the quality of his sleep will improve.. He will not need to take long naps. Congratulated him on for quitting drinking alcohol. Encouraged regular physical activity, and maintaining healthy eating habits. once his sleep apnea is treated and he has more estella rgy and better quality sleep, he will be able to slowly start working on his lifestyle larkin es. I spent 35 minutes face to face with the patient, with over 50% spent in counseling and/or coordination of care regarding sleep apnea. Thank you for the opportunity to participate in this patient's care. Portions of this chart may have been created with [employer] voice recognition software. Occasi onal wrong-word or sound-alike substitutions may have occurred due to the inherent young itations of voice recognition software. Please read the chart carefully and recognize, using context, where these substitutions have occurred. Radha Gan, Medical As sistant - 09/11/2019 3:00 PM PSTFormatting of this note might be different from the origina l. 09/11/19 1400 Gale Depression Inventory-II Depression Score 28 - Moderate depression Insomnia Severity Index Insomnia Severity Index 22 Neligh Sleepiness Scale 1. Sitting and reading 3 2. Watching TV 2 3. Sitting, inactive in a public place (e.g. a theatre or a meeting) 1 4. As a passenger in a car for an hour without a break 1 5. Lying down to rest in the afternoon when circumstances permit 3 6. Sitting and talking to someone 0 7. Sitting quietly after a lunch without alcohol 2 8. In a car, while stopped for a few minutes in traffic 0 Total score 12 SF-36v2 Score PF 47.97 RP 27.96 BP 42.24 GH 35.59 VT 40.72 SF 32.27 RE 38.76 MH 29.94 PCS 41.8 MCS 32.59 documented in this enco unter Plan of Treatment +--------+---------+ + + + | Date | Type | Specialty | Care Team | Description | +--------+---------+ + + + | 08/06/ | Office | Sleep Medicine | Anupam Germain PA | | | 2019 | Visit | | [address] | | | | | | [place] | | | | | | [address] | | | | | | | | +--------+---------+ + + + | 04/11/ | Office | Cardiology | LondonYusef elkinsfauzia, | | | 2020 | Visit | | MD [address] | | | | | | [address] [place], | | | | | | [place] [address] | | | | | | [phone] | | | | | | | | +--------+---------+ + + + + + +--------+ + + | Name | Type | Priori | Associated Diagnoses | Order Schedule | | | | ty | | | + + +--------+ + + | * [facility] - | Outpatient | Routin | GERSON (obstructive | Ordered: 09/11/2019 | | AMB Referral | Referral | e | sleep apnea) | | + + +--------+ + + documented as of this encounter Visit Diagnoses + + | Diagnosis | + + | GERSON (obstructive sleep apnea) - Primary Obstructive sleep apnea (adult) (pediatric) | + + documented in this encounter
--- OUTSIDE RECORDS SUMMARY | ~2020-07-05 | XMS | Encounter Summary ---
Demographics + + + | Address | [address] | | | [place] [address] | + + + | Home Phone | | + + + | Preferred Language | Unknown | + + + | Marital Status | Single | + + + | Jew Affiliation | Unknown | + + + | Race | or | + + + | Ethnic Group | Not or | + + + Author + + + | Author | [facility] | | | and [place] | + + + | Organization | [facility] | | | [...] Team Providers + +------+ + | Care Communications Field Technician Name | Role | Phone | + +------+ + | Isabel Cheung | PCP | | + +------+ + Reason for Visit + + + | Reason | Comments | + + + | CPAP Follow Up | | + + + Evaluate & Treat [...] | | Sleep | sleep apnea | [address] | [address] | | | | Medicine / | (adult) | [address] | [address] | | | | Sleep | (pediatric) | [place], | [place] | | | | Medicine | [place] | [place] [address] | [address] Phone: | | | | | Procedures | Phone: | [phone] | | | | | OFFICE | [phone] | Fax: | | | | | VISIT | Fax: | [phone] | | | | | REGULAR | [phone] | | +--------+--------+ + + + + Encounter Details +--------+---------+ + + + | Date | Type | Department | Care Team | Description | +--------+---------+ + + + | 10/16/ | Office | [facility] [place] [facility] | Uma Kulkarni MD | GERSON (obstructive | | 2019 | Visit | SLEEP DISORDER [address] | [address] | sleep apnea) | | | | [address] [place] [place] | [place] | (Primary Dx) | | | | [place] [address] | [address] | | | | | [phone] | | | +--------+---------+ + + + [...] + + + | Blood Pressure | 160/100 | 10/16/2019 11:15 AM | | | | | PST | | + + + + + | Pulse | 98 | 10/16/2019 11:15 AM | | | | | PST | | + + + + + | Temperature | - | - | | + + + + + | Respiratory Rate | 18 | 10/16/2019 11:15 AM | | | | | PST | | + + + + + | Oxygen Saturation | 96% | 10/16/2019 11:15 AM | | | | | PST | | + + + + + | Inhaled Oxygen | - | - | | | Concentration | | | | + + + + + | Weight | 165.5 kg (364 lb | 10/16/2019 11:15 AM | | | | 13.8 oz) | PST | | + + + + + | Height | - | - | | + + + + + | Body Mass Index | 49.48 | 10/12/2019 2:58 PM | | | | | PST | | + + + + + documented in this encounter Patient Instructions Patient Instructions Uma Kulkarni MD - 10/16/2019 11:15 AM PST- We will send a prescripti on for CPAP machine to your home care company. - Please start using your CPAP as directed. - Follow up with JORDEN Arredondo within 1-2 weeks. - Follow up with Anupam Germain PA-C in 7-8 weeks. - Insurance compliance criteria: Once you received your machine, you have 90 days in which you must use your machine for 30 consecutive days and for 70% of those 30 days you must use your machine for >= 4 hours. A M PST documented in this encounter Progress Notes Uma Kulkarni MD - 10/16/2019 11:15 AM PSTThe patient comes in to discuss sleep study res ults. My interpretation of the patient's sleep study, which I have reviewed with the patien t, is as follows: Unattended, Multiparameter, Sleep Apnea Test for Gordy Zhu performed on October 02. Identifying Information: Gordy Zhu is a 33 y.o. male who is referred for unattended, multi-parameter, sleep apnea test because of probable Obstructive Sleep Apnea. He has a his tory of morbid obesity, anxiety, bipolar disorder,atrial fibrillation, hypertension,alco holuse disorder, presentingfor evaluation of obstructive sleep apnea. BMI: 51 Technical Information: The study was performed on October 02, 2019 using the [employer] equipment with [employer] Version 11 Software. The study [...] signal excursion by 90% or greater of pre-vashti nt baseline using an oronasal thermal sensor, or an alternative apnea sensor and the duratio n of the 90% or greater drop in sensor signal is greater than or equal to 10 seconds. Obstructive Apnea: Event associated with continued or increased inspi ratory effort throughout the entire period of absent airflow. Central Apnea: Event associated with absent inspiratory effort throug hout the entire period of absent airflow. Because EEG is not monitored, Central Apneas canno t be scored with any degree of reliability on this type of sleep study. Mixed Apnea: Event associated with absent inspiratory effort in the i nitial portion of the event followed by resumption of inspiratory effort during the second p ortion of the event. Because EEG is not monitored, mixed apneas are not reliably scored on t his type of study. Hypopnea: The peak signal excursions drop by 30% or more of pre-event baseline u sing nasal pressure (diagnostic study), PAP device flow (titration study), or an alternative hypopnea sensor (diagnostic study). The duration of the 30% or greater drop in signal excur jostni must last for 10 seconds or longer. The event is associated with a 3% or greater oxygen desaturation from pre-event baseline or the event is associated with an arousal. Respiratory Event Related Arousal: Because EEG is not recorded, Respiratory Even t Related Arousal's cannot be enumerated. The Respiratory [...] and severe in frequency of desaturat ions. Mleo saturation was 72%, and patient spent 91.4 minutes with SPO2 at or below 90%. The study was technically an adequate study. Recommendations: 1. A trial of auto-CPAP at 5-15 cm H2O. 2. Weight management. Today, I discussed the above results in detail with patient. Again discussed health risks a ssociated with severe obstructive sleep apnea, and the benefit of treatment. again discu ssed different treatment options especially CPAP and weight loss. he is interested in trial of CPAP. Insurance compliance criteria was discussed. Once his sleep quality improved and his sleep apnea is treated, he will have more energy to keep working on his lifestyle larkin es and weight loss. Plan: Start auto CPAP at 5-15 cm H2O with patient's preference mask. Follow-up with JORDEN Mason in 1-2 weeks after starting Pap therapy. Follow-up with Anupam Germain PA-C In 7-8 weeks. documented in this enco unter Plan of Treatment +--------+---------+ + + + | Date | Type | Specialty | Care Team | Description | +--------+---------+ + + + | 08/06/ | Office | Sleep Medicine | Anupam Germain PA | | 2019 | Visit | | [address] | | | | | | [place] | | | | | | [address] | | | | | | | | +--------+---------+ + + + | 04/11/ | Office | Cardiology | Gerry Asif, | | | 2020 | Visit | | MD [address] | | | | | | [address] [place], | | | | | | [place] [address] | | | | | | [phone] | | | | | | | | +--------+---------+ + + + documented as of this encounter Visit Diagnoses + + | Diagnosis | + + | GERSON (obstructive sleep apnea) - Primary Obstructive sleep apnea (adult) (pediatric) | + + documented in this encounter"
--- OUTSIDE RECORDS SUMMARY | ~2020-07-05 | XMS | Encounter Summary ---
Demographics + + + | Address | [address] | | | [place] [address] | + + + | Home Phone [...] Author + + + | Author | [facility] | | | and [place] | + + + | Organization | [facility] | | | [...] Team Providers + +------+ + | Care Die Cast Supervisor Name | Role | Phone | + +------+ + | Isabel Cheung | PCP | | + +------+ + Reason for Visit + + + | Reason | Comments | + + + | Follow-up | | + + + | Atrial Fibrillation | | + + + Follow Up (Routine) +--------+--------+ + + + + | Status | Reason | Specialty | Diagnoses / | Referred By | Referred To | | | | | Procedures | Contact | Contact | +--------+--------+ + + + + | Closed | | Cardiology | Diagnoses | Jonatan, | Yefri, | | | | | F/U ECHO | YOLANDA Hall | MD Gerry | | | | | RESULTS | [id number] | [address] [place] [address] | | | | | Procedures | [address] | [address] | | | | | JUSTINP - DRARYN PT | [place], | [place], | | | | | | [place] [address] | [place] [address] | | | | | | Phone: | Phone: | | | | | | [phone] | [phone] | | | | | | Fax: | Fax: | | | | | | [phone] | [phone] | +--------+--------+ + + + + Encounter Details +--------+---------+ + + + | Date | Type | Department | Care Team | Description | +--------+---------+ + + + | 10/12/ | Office | [facility] | Gerry Asif, | Hypertension, | | 2020 | Visit | CARDIOLOGY [address] | essential (Primary | | | | [address], | [place], | [place]x) | | | | [place] [address] | [place] [address] | | | | | [phone] | [phone] | | | | | | | [...] + + + | Blood Pressure | 140/82 | 10/12/2019 2:58 PM | | | | | PST | | + + + + + | Pulse | 68 | 10/12/2019 2:58 PM | | | | | PST | | + + + + + | Temperature | - | - | | + + + + + | Respiratory Rate | 18 | 10/12/2019 2:58 PM | | | | | PST | | + + + + + | Oxygen Saturation | - | - | | + + + + + | Inhaled Oxygen | - | - | | | Concentration | | | | + + + + + | Weight | 164.9 kg (363 lb 8.6 | 10/12/2019 2:58 PM | | | | oz) | PST | | + + + + + | Height | 182.9 cm (6') | 10/12/2019 2:58 PM | | | | | PST | | + + + + + | Body Mass Index | 49.3 | 10/12/2019 2:58 PM | | | | | PST | | + + + + + documented in this encounter Patient Instructions Patient Instructions Regina Forte RN - 10/12/2019 3:00 PM PST Increase Lisinopril to 20mg twice daily Check blood pressure and pulse twice daily for two weeks, mail back in envelope provided. Blood test: Non-fasting Date Due: 1 week after increasing Lisinopril Where to go for labs: Lab of your choice, please see lab orders, take them with you to the lab. Follow up appointment: 6 months Provider: Gerry Asif MD Date: Check-In Time: documented in this encounter Progress Notes Gerry Asif MD - 10/12/2019 3:00 PM PSTFormatting of this note might be different f rom the original. PATIENT NAME: Gordy Zhu : 1985: AGE: 33 y.o. PRIMARY CARE: YOLANDA Mohan OUTPATIENT FOLLOW UP VISIT Date of Service: 10/12/2019 HISTORY OF PRESENT ILLNESS: Gordy Zhu is a 33 y.o. male with a history of new onset atrial fibrillation, heart f ailure with mid range ejection fraction, morbidly obese, alcoholism and essential hypertensi on. He is being seen today for follow up. He was last seen on 08/28/19 at which time patient was schedule for echocardiogram and to i ncrease lisinopril 20 mg daily. Since that time, patient has been doing well from cardiac standpoint. Today, patient is feeling good. Patient is physically active by going to the gy m daily and does cardiovascular exercise. There is no chest pain or chest discomfort both at rest and on exertion. Patient denies breathlessness. There is no palpitation dizziness or l ightheadedness. There is no ankle or leg swelling. Patient can sleep on one pillow at night without difficulty breathing. MEDICAL, SURGICAL, AND PERSONAL HISTORY Past [...] (VITAMIN B 12 PO) Take by mouth. gabapentin (NEURONTIN) 300 mg capsule Take 300 mg by mouth 3 times daily. hydrOXYzine pamoate (VISTARIL) 25 mg capsule Take 25 mg by mouth as needed for Itching. lisinopril (PRINIVIL, ZESTRIL) 20 mg tablet Take 1 tablet by mouth Daily. 90 tablet 3 metoprolol succinate (TOPROL-XL) 200 mg ER [...] Lightheaded = No OBJECTIVE: PHYSICAL EXAM BP 140/82 | Pulse 68 | Resp 18 | Ht 1.829 m (6') | Wt (!) 164.9 kg (363 lb 8.6 oz) | B AZ 49.30 kg/m Physical Exam Constitutional: He appears well-developed and well-nourished. No distress. Neck: Normal carotid pulses, no hepatojugular reflux and no JVD present. Carotid bruit is n ot present. Cardiovascular: Normal rate, regular rhythm, S1 normal, S2 normal, normal heart sounds, int act distal pulses and normal pulses. PMI is not displaced. Exam reveals no gallop, no S3, no S4 and no friction rub. No murmur heard. Pulses: Carotid pulses are 2+ on the right side and 2+ on the left side. Dorsalis pedis pulses are 2+ on the right side and 2+ on the left side. Pulmonary/Chest: Effort normal and breath sounds normal. No accessory muscle usage. No resp iratory distress. He has no wheezes. He has no rhonchi. He has no rales. Abdominal: Normal appearance, normal aorta and bowel sounds are normal. He exhibits no abdo nial bruit. There is no hepatosplenomegaly. There is no tenderness. Musculoskeletal: General: No edema. Neurological: He is alert. Gait normal. Skin: Skin is warm and dry. Psychiatric: He has a normal mood and affect. His mood appears not anxious. He does not exh ibit a depressed mood. LAB RESULTS reviewed during visit today primarily from [facility]: LIPID No results found for: CHOL, TRIG, HDL, LDL, CHOLHDL, LDLEX, HDLEX, TRIGEX, CHOLEX CHEMISTRY Lab Results Component Value Date GLUEX 94 09/11/2019 NAEX 137 09/11/2019 KEX 4.2 09/11/2019 CLEX 98 09/11/2019 CO2EX 26 09/11/2019 ASTEX 26 09/11/2019 ALTEX 39 09/11/2019 CREEX 0.80 09/11/2019 HEMATOLOGY No results found for: WBC, WBCEX, HGB, HGBEX, HCT, HCTEX, PLT, PLTEX Above data and testing is reviewed this visit; testing below is historical data unless othe rwise specified. ASSESSMENT: 1. New onset atrial fibrillation with rapid ventricular response A. Patient was in his usual state of health until 06/26/2019, he was admitted to [facility] for new onset atrial fibrillation with [...] normal IVC with a normal respiratory collapse. Today, patient is feeling good. Patient is physically active by going to the gym daily and does cardiovascular exercise.There is no signs and symptoms of overt congestive heart failu re. He is in a class I of [place] [employer] functional class. There is no fluid r etention on physical examination. His risks for stroke include: Hx of HTN (1). His [id number] score is 1, which gives an estimated 1.3% risk of stroke per year in atrial fibrillation. His bleeding risks include: HTN (1). His HASBLED score is 0-1, which confers a low risk (1-3.4%) risk of ble ed per year. He is taking aspirin. 2. Heart failure with recovery ejection fraction A. Echocardiogram shows an EF of 40-45% 3. Essential hypertension A. Today, blood pressure in office is elevated. 4. Morbidly obese; Not address today. A. Patient has lost 50 lbs since October 2018 after starting a new job that re quired more physical work. 5. Alcoholism; Not addressed today. A. Patient was drinking beer and whiskey everyday. He has completely stopped dr singh. 6. Sleep apnea A. He is scheduled for sleep consult on 09/11/2019. B. Sleep study shows this home sleep apnea testing (HSAT) showed sleep apnea which was obs tructive in nature, and it was severe in frequency of events, and severe in frequency of dorie aturations. Melo saturation was 72%, and patient spent 91.4 minutes with SPO2 at or below 90%. The study was technically an adequate PLAN: 1. Increase lisinopril 20 mg from once a day to twice a day for the lower blood pressure. 2. Check blood pressure x 2 weeks. Check minichem in 1 week. 3. I recommend a therapeutic lifestyle change including walking 30 minutes a day, choosing healthy choices of diet , including DASH diet, weight reduction and 7 hours of high quality sleep a night. 4. I recommend flu vaccine. 5. Follow-up in 6 months. IBernarda, am acting as a scribe on behalf of, and in the presence of Gerry jonas MD. I have reviewed and edited this note. Ishmael Franklin Asst 10/12/2019 I, Gerry Asif MD, personally performed the services described in this documentation, as scribed in my presence and it is both accurate and complete. Ishmael Franklin Asst 3:04 PM Electronically signed by: Gerry Asif MD [facility] 10/12/2019 Portions of this chart may have been created with IMNEXT voice recognition software. Occasi onal wrong-word or [...] [place] | | | | | | [id number] | | | | | | | | +--------+---------+ + + + | 04/11/ | Office | Cardiology | Gerry Asif, | | | 2020 | Visit | | [address] | | | | | | . [place] | | | | | | [place] [address] | | | | | | [phone] | | | | | | | | +--------+---------+ + + + + +------+--------+ + + | Name | Type | Priori | Associated Diagnoses | Order Schedule | | | | ty | | | + +------+--------+ + + | Basic Metabolic | Lab | Routin | Hypertension, | Expected: | | Panel | | e | essential | 10/19/2019, Expires: | | | | | | 10/11/2020 | + +------+--------+ + + documented as of this encounter Procedures + +--------+ + + + | Procedure Name | Priori | Date/Time | Associated Diagnosis | Comments | | | ty | | | | + +--------+ + + + | LABS - EXTERNAL SCAN | | 09/11/2019 | | Results for this | | | | 12:00 AM | | procedure are in the | | | | PST | | results section. | + +--------+ + + + documented in this encounter Results LABS - EXTERNAL SCAN (09/11/2019 12:00 AM PST) + + + | Narrative | Performed At | + + + | Ordered by an | | | unspecified provider. | | + + + documented in this encounter Visit Diagnoses + + | Diagnosis | + + | Hypertension, essential - Primary Unspecified essential hypertension | + + documented in this encounter"
--- OUTSIDE RECORDS SUMMARY | ~2020-07-05 | XMS | Encounter Summary ---
Demographics + + + | Address | [address] | | | [place] [address] | + + + | Home Phone | | + + + | Preferred Language | Unknown | + + + | Marital Status | Single | + + + | Restoration Affiliation | Unknown | + + + | Race | or | + + + | Ethnic Group | Not or | + + + Author + + + | Author | [facility] | | | and [place] | + + + | Organization | [facility] | | [...] Team Providers + +------+ + | Care Notching Machine Operator Name | Role | Phone | + +------+ + | Isabel Cheung | PCP | | + +------+ + Reason for Visit +--------+--------+ + | Reason | Onset | Comments | | | Date | | +--------+--------+ + | Other | 08/30/ | AKILAH RECORDS REQUEST | | | 2019 | | +--------+--------+ + Encounter Details +--------+ + + + + | Date | Type | Department | Care Team | Description | +--------+ + + + + | 08/30/ | Telephone | [facility] | Gerry Asif, | Other ([facility] | | 2019 | | CARDIOLOGY [address] | RECORDS REQUEST) | | | | [place], | [place], | | | | | [place] [address] | [place] [address] | | | | | [phone] | [phone] | | | | | | | [...] this encounter Miscellaneous Notes Telephone Encounter - July Martino - 08/30/2019 7:58 AM Annabel at [facility] after-hours [facility] requesting office notes for patient's cardiology appointment on 08-28-19 Dr. Callahan. Faxed office notes to [facility] fax number [phone] as requested.Nikki nieto signed by July Martino at 08/30/2019 8:01 AM PSTdocumented in this encounter Plan of Treatment +--------+---------+ + + + | Date | Type | Specialty | Care Team | Description | +--------+---------+ + + + | 08/06/ | Office | Sleep Medicine | Anupam Germain PA | | | 2019 | Visit | | [address] | | | | | | [place] | | | | | | [id number] | | | | | | | | +--------+---------+ + + + | 04/11/ | Office | Cardiology | Gerry Asif, | | | 2020 | Visit | | [address] | | | | | | [place] | | | | | | [place] [address] | | | | | | [phone] | | | | | | | | +--------+---------+ + + + documented as of this encounter Visit Diagnoses Not on filedocumented in this encounter"
--- OUTSIDE RECORDS SUMMARY | ~2020-07-05 | XMS | Encounter Summary ---
Demographics + + + | Address | [address] | | | [place] [address] | + + + | Home Phone | | + + + | Preferred Language | Unknown | + + + | Marital Status | Single | + + + | Bahai Affiliation | Unknown | + + + | Race | or | + + + | Ethnic Group | Not or | + + + Author + + + | Author | [facility] | | | and [place] | + + + | Organization | [facility] | | | [...] Team Providers + +------+ + | Care Early Education Teacher Name | Role | Phone | + +------+ + | Isabel Cheung | PCP | | + +------+ + Encounter Details +--------+ + + + + | Date | Type | Department | Care Team | Description | +--------+ + + + + | 08/29/ | Orders Only | [facility] | Stephanie Haines, | | | 2018 | | CARDIOLOGY [address] | RN | | | | | [place], | | | | | | [place] [address] | | | | | | [phone] | | | +--------+ + + + [...] 2020 | Visit | | [address] | | | | | | [place] | | | | | | [id number] | | | | | | | | +--------+---------+ + + + | 04/11/ | Office | Cardiology | Gerry Asif, | | | 2020 | Visit | | [address] | | | | | | [place], | | | | | | [place] [address] | | | | | | [phone] | | | | | | | | +--------+---------+ + + + documented as of this encounter Visit Diagnoses Not on filedocumented in this encounter"
--- OUTSIDE RECORDS SUMMARY | ~2020-07-05 | XMS | Encounter Summary ---
Demographics + + + | Address | [address] | | | [place] [address] | + + + | Home Phone | | + + + | Preferred Language | Unknown | + + + | Marital Status | Single | + + + | Mu-Ism Affiliation | Unknown | + + + | Race | or | + + + | Ethnic Group | Not or | + + + Author + + + | Author | [facility] | | | and [place] | + + + | Organization | [facility] | | | [...] Team Providers + +------+ + | Care Philosophy Professor Name | Role | Phone | + +------+ + | Isabel Cheung | PCP | | + +------+ + Reason for Visit Auth/Cert +--------+--------+ + + + + | Status | Reason | Specialty | Diagnoses / | Referred By | Referred To | | | | | Procedures | Contact | Contact | +--------+--------+ + + + + | | | | | | | +--------+--------+ + + + + Encounter Details +--------+ + + + + | Date | Type | Department | Care Team | Description | +--------+ + + + + | 10/05/ | Hospital | [facility] | Gerry Asif, | Hypertension, | | 2020 | Encounter | MED CTR ECHO [address] | MD [address] [place] | essential | | | | [place] | [address], | | | | | [place] [address] | [place] [address] | | | | | [phone] | | | | | | | [...] 2019 | Visit | | [address] | | | | | | [place] | | | | | | [address] | | | | | | | | +--------+---------+ + + + | 04/11/ | Office | Cardiology | Gerry Asif, | | | 2020 | Visit | | [address] | | | | | | [place], | | | | | | [place] [address] | | | | | | [phone] | | | | | | | | +--------+---------+ + + + documented as of this encounter Procedures + +--------+ + + + | Procedure Name | Priori | Date/Time | Associated Diagnosis | Comments | | | ty | | | | + +--------+ + + + | ECHO COMPLETE W | Routin | 10/05/2019 | Hypertension, | Results for this | | CONTRAST | e | 4:49 PM | essential | procedure are in the | | | | PST | | results section. | + +--------+ + + + documented in this encounter Results ECHO Complete w Contrast (10/05/2019 4:49 PM PST) + +--------+ + + + | Component | Value | Ref Range | Performed | Pathologist | | | | | At | Signature | + +--------+ + + + | Patient | 370 lb | | [facility] | | | Weight | | | | | | (lbs) | | | | | + +--------+ + + + | Patient | 71 in | | [facility] | | | Height | | | | | + +--------+ + + + | Inferior | 1.82 | cm | [facility] | | | Vena Cava | | | | | | Diameter at | | | | | | Expiration | | | | | + +--------+ + + + | LVIDd | 5.17 | cm | [facility] | | + +--------+ + + + | FS | 30 | % | [facility] | | + +--------+ + + + | LA volume | 74.95 | mL | [facility] | | + +--------+ + + + | Ascending | 3.01 | cm | [facility] | | | aorta | | | | | + +--------+ + + + | LVOT | 2.53 | cm | [facility] | | | diameter | | | | | + +--------+ + + + | LVOT peak | 76.93 | cm/s | [facility] | | | nannette | | | | | + +--------+ + + + | AV peak nannette | 126.06 | cm/s | [facility] | | + +--------+ + + + | AV peak | 6.36 | mmHg | [facility] | | | gradient | | | | | + +--------+ + + + | LA Volume | 27 | mL/m2 | [facility] | | | Index | | | | | + +--------+ + + + | AV LVOT | 2.37 | mmHg | [facility] | | | Peak | | | | | | Gradient | | | | | + +--------+ + + + | RV Free | 18 | cm/s | [facility] | | | [place] Peak | | | | | | S' | | | | | + +--------+ + + + | LV | 8.62 | cm | [facility] | | | Diastolic | | | | | | Length 4C | | | | | + +--------+ + + + | LV | 65 | % | [facility] | | | Rondon's | | | | | | Biplane EF | | | | | + +--------+ + + + | MV E' | 15 | cm/s | [facility] | | | Lateral | | | | | | Velocity | | | | | + +--------+ + + + | MV E' | 11 | cm/s | [facility] | | | Septal | | | | | | Velocity | | | | | + +--------+ + + + | MV | 460.73 | cm/s2 | [facility] | | | Deceleratio | | | | | | n [facility] | | | | | + +--------+ + + + | MV | 205.01 | msec | [facility] | | | Deceleratio | | | | | | n Time | | | | | + +--------+ + + + | MV E/A | 1.74 | | [facility] | | | Ratio | | | | | + +--------+ + + + | MV Peak | 54.25 | cm/s | [facility] | | | A-Wave | | | | | + +--------+ + + + | MV Peak | 94.45 | cm/s | [facility] | | | E-Wave | | | | | + +--------+ + + + | RA Area | 23.26 | cm2 | [facility] | | + +--------+ + + + | LA Area | 21.64 | cm2 | [facility] | | + +--------+ + + + | LA Systolic | 9.87 | mmHg | [facility] | | | Pressure | | | | | + +--------+ + + + | MV E/E | 8.59 | | [facility] | | | SEPTAL | | | | | + +--------+ + + + | MV E/E | 6.3 | | [facility] | | | LATERAL | | | | | + +--------+ + + + | Vitals | 77 | | [facility] | | | Heart Rate | | | | | | Rest | | | | | + +--------+ + + + | Vitals BP | 156 | | [facility] | | | Systolic | | | | | + +--------+ + + + | Vitals BP | 94 | | [facility] | | | Diastolic | | | | | + +--------+ + + + | Aortic Root | 3.42 | cm | [facility] | | | Diameter | | | | | + +--------+ + + + | IVS | 1.11 | cm | [facility] | | | Diastolic | | | | | | Thickness | | | | | | MM | | | | | + +--------+ + + + | LVPW | 1.41 | cm | [facility] | | | Diastolic | | | | | | Thickness | | | | | | MM | | | | | + +--------+ + + + | IVS | 1.53 | cm | [facility] | | | Systolic | | | | | | Thickness | | | | | | MM | | | | | + +--------+ + + + | LV Systolic | 3.62 | cm | [facility] | | | Diameter | | | | | | MM | | | | | + +--------+ + + + | LVPW | 1.46 | cm | [facility] | | | Systolic | | | | | | Thickness | | | | | | MM | | | | | + +--------+ + + + | TAPSE | 1.5 | cm | [facility] | | + +--------+ + + + | LVEF-TTE | 65 | % | [facility] | | | TRANSTHORAC | | | | | | IC ECHO | | | | | + +--------+ + + + | RA PRESSURE | 3 | mmHg | [facility] | | + +--------+ + + + + + | Specimen | + + | | + + + + + | Narrative | Performed At | + + + | 1. This is a | [facility] | | technically limited study due to a poor acoustic windows secondary to | | | body habitus. Definity contrast agent was utilized.2. Normal left | | | ventricular size with a mild concentric left ventricular hypertrophy. | | | Left ventricular systolic function is preserved. LVEF is 65%.3. | | | Not well visualized valvular structure.4. Normal right-sided | | | pressure.5. Normal IVC with a normal respiratory collapse. | | |5. Normal IVC with a normal respiratory collapse. | | + + + + +---------+ + + | Performing | Address | City/State/Zipcode | Phone Number | | Organization | | | | + +---------+ + + | [facility] | | | | + +---------+ + + documented in this encounter Visit Diagnoses + + | Diagnosis | + + | Hypertension, essential Unspecified essential hypertension | + + documented in this encounter Administered Medications + +--------+ +-------+------+------+ | Medication Order | MAR | Action | Dose | Rate | Site | | | Action | Date | | | | + +--------+ +-------+------+------+ | perflutren lipid microspheres | Given | 10/05/19 | 2 mLs | | | | (DEFINITY) injection 2 mL 2 mL, | | 20 4:49 | | | | | Intravenous, ONCE PRN, Other, | | PM PST | | | | | Starting [facility] 10/05/19 at 1631, For | | | | | | | 1 dose, Echo | | | | | | + +--------+ +-------+------+------+ +---+---+ | | | +---+---+ documented in this encounter"
--- OUTSIDE RECORDS SUMMARY | ~2020-07-05 | XMS | Encounter Summary ---
Demographics + + + | Address | [address] | | | [place] [address] | + + + | Home Phone | | + + + | Preferred Language | Unknown | + + + | Marital Status | Single | + + + | Anabaptism Affiliation | Unknown | + + + | Race | or | + + + | Ethnic Group | Not or | + + + Author + + + | Author | [facility] | | | and [place] | + + + | Organization | [facility] | | | and [...] Team Providers + +------+ + | Care University Administrative Assistant Name | Role | Phone | + +------+ + | Isabel Cheung | PCP | | + +------+ + Reason for Visit + + + | Reason | Comments | + + + | CPAP Follow Up | | + + + Follow Up (Routine) +--------+--------+ + + + + | Status | Reason | Specialty | Diagnoses / | Referred By | Referred To | | | | | Procedures | Contact | Contact | +--------+--------+ + + + + | Closed | | Physician | Diagnoses | Jonatan, | Anupam Germain | | | | Content Developer / | Obstructive | YOLANDA Hall | D, RUTHIE [address] | | | | Sleep | sleep apnea | [id number] | [address] | | | | Medicine | (adult) | [place]O | [place], | | | | | (pediatric) | [place], | [place] [address] | | | | | 4 weeks | [place] [address] | Phone: | | | | | bring equip: | Phone: | [phone] | | | | | mask | [phone] | Fax: | | | | | Procedures | Fax: | [phone] | | | | | OFFICE VISIT | [phone] | | | | | | EXTENDED | | | +--------+--------+ + + + + Encounter Details +--------+---------+ + + + | Date | Type | Department | Care Team | Description | +--------+---------+ + + + | 07/02/ | Office | [facility] | Anupam Germain PA | GERSON on CPAP (Primary | | 2020 | Visit | SLEEP DISORDER [address] | [address] | Dx) | | | | [address] | [place] | | | | | [place] [address] | [address] | | | | | [phone] | | | +--------+---------+ + + + [...] + documented in this encounter Progress Notes Anupam Germain PA - 07/02/2020 1:00 PM PDT Subjective: Patient ID: last office visit: 06/12/2020 date of HST: 10/02/2019 AHI: 64.2 RDI: O2%: 72% with 91.4 minutes below 90% Machine type: ResMed AirSense 10 Mask type: ResMed F20 full face mask DME: [facility] [place] pressure: 5-15 cm Median: 7.2 cm 95%: 11.4 cm maximum: 12.6 cm Nights using CPAP: 14/16 % of nights >4 hours: 56% average usage (all nights): 3:57 average usage (nights used): 4:31 AHI: 1.3 Gordy comes in for CPAP compliance. He is wearing his CPAP regularly, but struggles with wearing it for the duration of his sleep. He had some difficulty getting his CPAP because o f COVID. [facility] [place] gave him his machine in early April with no instruct ions and a nasal mask. He was not able to tolerate the nasal mask because he often breathes through his mouth. Eventually he was able to get a full face mask and has done much better since. He is sleeping better and feels more rested with more energy during the day. He guerrero s still been inconsistent with his usage, but generally does very well when wearing it. He does not sleep nearly as well without it and feels more tired the following day. This motiv ates him to use his CPAP. He understands that he has severe apnea and the importance of usi ng his CPAP 100% of the time he is asleep. He is motivated to do well with his CPAP. He sa ys he accidentally tore the cushion to his mask while cleaning it and needs to replace it. I have discussed the download in detail. This shows that his sleep apnea is controlled, wi th an AHI of 1.3. It also shows that his leaks are controlled on most nights. Objective: BP 128/70 | Pulse 84 | Resp 16 | Wt (!) 146.6 kg (323 lb 3.1 oz) | SpO2 99% | BMI 43.8 3 kg/m Assessment: Problem #1: OBSTRUCTIVE SLEEP APNEA ([id number]) He has severe apnea. This is controlled with CPAP. He is struggling with his CPAP usage. He has been inconsistent with his usage, but does well when wearing it. He is sleeping bet ter and feels more rested with more energy during the day when wearing it for the duration o f his sleep. He tore the cushion to his full face mask while cleaning it. Plan: 1. He is to continue with CPAP indefinitely. 2. He is to go to [facility] [place] to get a new cushion for his mask. 3. I have recommended that he work toward wearing his CPAP 100% of the time he is asleep. I will follow up again in 1 month, sooner prn. Fifteen minutes were spent [id number], wi th the majority of time spent in counseling. Anupam Germain PA-C cc: SYLVESTER Mohan documented in this encounter Plan of Treatment +--------+---------+ + + + | Date | Type | Specialty | Care Team | Description | +--------+---------+ + + + | 08/06/ | Office | Sleep Medicine | Anupam Germain PA | | 2019 | Visit | | [address] | | | | | | [place] | | | | | | [id number] | | | | | | | | +--------+---------+ + + + | 04/11/ | Office | Cardiology | Gerry Asif, | | | 2020 | Visit | | MD [address] | | | | | | [place], | | | | | | [place] [address] | | | | | | [phone] | | | | | | | | +--------+---------+ + + + documented as of this encounter Visit Diagnoses + + | Diagnosis | + + | GERSON on CPAP - Primary Obstructive sleep apnea (adult) (pediatric) | + + documented in this encounter"
--- OUTSIDE RECORDS SUMMARY | ~2020-07-05 | XMS | Encounter Summary ---
Demographics + + + | Address | [address] | | | [place] [address] | + + + | Home Phone [...] Author + + + | Author | [facility] | | | and [place] | + + + | Organization | [facility] | | [...] Team Providers + +------+ + | Care Conservation Engineer Name | Role | Phone | + +------+ + | Isabel Cheung | PCP | | + +------+ + Reason for Visit + + + | Reason | Comments | + + + | New Patient | | + + + | Atrial Fibrillation | | + + + Evaluate & Treat (Routine) +--------+--------+ + + + + | Status | Reason | Specialty | Diagnoses / | Referred By | Referred To | | | | | Procedures | Contact | Contact | +--------+--------+ + + + + | Closed | | Cardiology | Diagnoses | Jonatan, | [place] | | | | | A-fib ([facility]) | YOLANDA Hall | Cardiology | | | | | Left | [address] | [address] | | | | | ventricular | [address] | [place], | | | | | systolic | [place], | [place] | | | | | dysfunction | [place] [address] | [address] | | | | | Procedures | Phone: | Phone: | | | | | FRINGE KNOTTER | [phone] | [phone] | | | | | | Fax: | Fax: | | | | | | [phone] | [phone] | +--------+--------+ + + + + Encounter Details +--------+---------+ + + + | Date | Type | Department | Care Team | Description | +--------+---------+ + + + | 08/28/ | Office | [facility] | Norman Asif, | Atrial fibrillation, | | 2018 | Visit | CARDIOLOGY [address] | unspecified type | | | | [address] [place], | [place], | ([facility]) (Primary Dx); | | | | [place] [address] | [place] [address] | Hypertension, | | | | [phone] | [phone] | essential | | | | | [...] + + + | Blood Pressure | 156/90 | 08/28/2019 2:48 PM | | | | | PST | | + + + + + | Pulse | 78 | 08/28/2019 2:48 PM | | | | | PST | | + + + + + | Temperature | - | - | | + + + + + | Respiratory Rate | 18 | 08/28/2019 2:48 PM | | | | | PST | | + + + + + | Oxygen Saturation | - | - | | + + + + + | Inhaled Oxygen | - | - | | | Concentration | | | | + + + + + | Weight | 165.4 kg (364 lb | 08/28/2019 2:48 PM | | | | 10.3 oz) | PST | | + + + + + | Height | 182.9 cm (6') | 08/28/2019 2:48 PM | | | | | PST | | + + + + + | Body Mass Index | 49.45 | 08/28/2019 2:48 PM | | | | | PST | | + + + + + documented in this encounter Patient Instructions Patient Instructions Stephanie Haines RN - 08/28/2019 3:00 PM PSTIncrease Lisinopril to 2 0 mg daily. Take and record blood pressure and pulse once in the morning and once in the evening for tw o weeks. Please mail log back in provided envelope. Blood test: Non-fasting Date Due: 7 days Where to go for labs: [facility]- [address] Echo: Date: Check-In Time: Where to Check In: Follow up appointment: 4 weeks Provider: Norman Asif MD Date: Check-In Time: documented in this encounter Progress Notes Norman Asif MD - 08/28/2019 3:00 PM PSTFormatting of this note might be different f rom the original. PATIENT NAME: Gordy Zhu : 1985: AGE: 33 y.o. REFERRED BY: YOLANDA Mohan PRIMARY CARE: YOLANDA Mohan NEW PATIENT OFFICE VISIT Date of Service: 08/28/19 HISTORY OF PRESENT ILLNESS: Gordy Zhu is a 33 y.o. male with a history of new onset atrial fibrillation, heart f ailure with mid range ejection fraction, morbidly obese, alcoholism and essential hypertensi on. He is being seen today for [facility] follow up for atrial fibrillation wit h rapid ventricular response. Patient was in his usual state of health until 06/26/2019, he was admitted to [facility] for new onset atrial fibrillation with RVR seen by Jayde Giles MD. At th at time, patient was having palpitations and a heart rate as high as 180's. He was then star kayleen on aspirin 81 mg, metoprolol 200 mg and lisinopril 10 mg. Today, patient is feeling better. Patient is physically inactive. There is no chest pain or chest discomfort both at rest and on exertion. Patient denies breathlessness. There is no palpitations, dizziness or lightheadedness. There is no ankle or leg swelling. Patient can sleep on one pillow at night without difficulty breathing. CURRENT PROBLEMS Patient Active Problem List Diagnosis Atrial fibrillation Hypertension, essential Morbid obesity Alcoholic Bipolar disorder Anxiety Snoring Sleep apnea MEDICAL, SURGICAL, AND PERSONAL HISTORY History reviewed. No pertinent surgical history. History reviewed. No pertinent family history. No family status information on file. Social History Socioeconomic History Marital status: Single Spouse name: Not on file Number of children: Not on file Years of education: Not on file Highest education level: Not on file Tobacco Use Smoking status: Never Smoker Smokeless tobacco: Never Used Substance and Sexual Activity Alcohol use: Not Currently Drug use: Yes Types: Marijuana CURRENT MEDICATIONS Current Outpatient Medications Medication Sig Dispense Refill ARIPiprazole (ABILIFY) 10 mg tablet Take 10 mg by mouth Daily. aspirin 81 MG tablet Take 81 mg by mouth Daily. gabapentin (NEURONTIN) 300 mg capsule Take 300 mg by mouth 3 times daily. hydrOXYzine pamoate (VISTARIL) 25 mg capsule Take 25 mg by mouth as needed for Itching. lisinopril (PRINIVIL, ZESTRIL) 10 mg tablet Take 10 mg by mouth Daily. metoprolol succinate (TOPROL-XL) 200 mg ER tablet Take 200 mg by mouth Daily. traZODone (DESYREL) 50 mg tablet Take 50 mg by mouth nightly. No current facility-administered medications for this visit. ALLERGIES No Known Allergies ROS Review of Systems Constitutional: Negative for chills, diaphoresis, fever, malaise/fatigue and weight loss. HENT: Negative for congestion, hearing loss, nosebleeds and tinnitus. Dental Problems = No Eyes: Negative for blurred vision and double vision. Respiratory: Positive for shortness of breath. Cardiovascular: Negative for chest pain, palpitations and leg swelling. Gastrointestinal: Negative for blood in stool, constipation, diarrhea, nausea and vomiting. Genitourinary: Negative for dysuria, frequency, hematuria and urgency. Musculoskeletal: Positive for back pain. Negative for falls, joint pain, myalgias and neck pain. Gait Problems = No Skin: Negative for itching and rash. Neurological: Positive for dizziness. Negative for tingling, tremors, speech change, seizur es, loss of consciousness and weakness. Lightheaded = No Endo/Heme/Allergies: Does not bruise/bleed easily. Psychiatric/Behavioral: Negative for memory loss. The patient is nervous/anxious and has in somnia. OBJECTIVE: PHYSICAL EXAM BP 156/90 | Pulse 78 | Resp 18 | Ht 1.829 m (6') | Wt (!) 165.4 kg (364 lb 10.3 oz) | BMI 49.45 kg/m Physical Exam Constitutional: He is oriented to person, place, and time. He appears well-developed and we ll-nourished. No distress. Morbidly obese, male individual, no acute distress. HENT: Head: Normocephalic. Mouth/Throat: Mucous membranes are not cyanotic. Eyes: Lids are normal. Neck: Normal carotid pulses, no hepatojugular reflux and no JVD present. Carotid bruit is n ot present. No tracheal deviation present. Cardiovascular: Normal rate, regular rhythm, S1 normal, S2 normal and normal pulses. PMI is not displaced. Exam reveals no gallop, no S3 and no S4. No murmur heard. Pulses: Carotid pulses are 2+ on the right side and 2+ on the left side. Femoral pulses are 2+ on the right side and 2+ on the left side. Dorsalis pedis pulses are 2+ on the right side and 2+ on the left side. Posterior tibial pulses are 2+ on the right side and 2+ on the left side. Pulmonary/Chest: Effort normal and breath sounds normal. No accessory muscle usage. No resp iratory distress. He has no wheezes. He has no rhonchi. He has no rales. Abdominal: Soft. Normal appearance and bowel sounds are normal. He exhibits no abdominal br uit. There is no hepatosplenomegaly. There is no tenderness. Musculoskeletal: General: No edema. Neurological: He is alert and oriented to person, place, and time. Gait normal. Skin: Skin is warm and dry. He is not diaphoretic. No cyanosis. No pallor. Nails show no cl ubbing. Psychiatric: He has a normal mood and affect. His mood appears not anxious. He does not exh ibit a depressed mood. ECG: Sinus rhythm with occasional premature ventricular complexes. LAB RESULTS: LIPID No results found for: CHOL, TRIG, HDL, LDL, CHOLHDL, LDLEX, HDLEX, TRIGEX, CHOLEX CHEMISTRY No results found for: GLU, GLUEX, NA, NAEX, K, KEX, CL, CLEX, CO2, CO2EX, CALCIUM, ALKPHOS, AST, ASTEX, ALT, ALTEX, BILITOT, CREA, BUN, EGFR, EGFREX, CREEX HEMATOLOGY No results found for: WBC, WBCEX, HGB, HGBEX, HCT, HCTEX, PLT, PLTEX I reviewed records from Jayde Giles MD for hospitalization at [facility] on 06/26/2019-06/28/2019. Refer to angiography technologist. ASSESSMENT: 1. New onset atrial fibrillation with rapid ventricular response A. Patient was in his usual state of health until 06/26/2019, he was admitted to [facility] for new onset atrial fibrillation with RVR seen by Jayde Giles MD. A t that time, patient was having palpitations and a heart rate as high as 180's. He was then started on aspirin 81 mg, metoprolol 200 mg and lisinopril 10 mg. Today, patient is feeling better. Patient is physically inactive. There is no signs and s ymptoms of overt congestive heart failure. He is in a class I of [employer] functional class. There is no fluid retention on physical examination. His risks for stroke include: Hx of HTN (1). His [id number] score is 1, which gives an e stimated 1.3% risk of stroke per year in atrial fibrillation. His bleeding risks include: H TN (1). His HASBLED score is 0-1, which confers a low risk (1-3.4%) risk of bleed per year . He is taking aspirin. 2. Heart failure with mid range ejection fraction A. Echocardiogram shows an EF of 40-45%. 3. Essential hypertension A. Today, his blood pressure in office is elevated. 4. Morbidly obese A. Patient has lost 50 lbs since October 2018 after starting a new job that required more physical work. 5. Alcoholism A. Patient was drinking beer and whiskey everyday. He has completely stopped drinking. 6. Sleep apnea A. He is scheduled for sleep consult on 09/11/2019. PLAN: 1. I spend time at length talking about natural course, treatment and prognosis of atrial f ibrillation. 2. Increase lisinopril to 20 mg once a day to lower blood pressure and treat heart failure. 3. Check blood pressure x 2 weeks. Check minichem in 1 week. 4. Echocardiogram is warranted to assess cardiac structure. 5. I recommend flu vaccine, he refuses at this time. 6. I recommend a therapeutic lifestyle change including walking 30 minutes a day, choosing healthy choices of diet , including DASH diet, weight reduction and 7 hours of high quality sleep a night. 7. Follow up in six weeks. I, Vickie Kumar, am acting as a scribe on behalf of, and in the presence of Norman malhotra MD. I have reviewed and edited this note. Vickie Kumar, Mash Filter Operator 08/28/2019 I, Norman Asif MD, personally performed the services described in this documentation, as scribed in my presence and it is both accurate and complete. Vickie Kumar, Med Ass t 08/28/2019 3:12 PM Electronically signed by: Norman Asif MD [facility] 08/28/2019 Portions of this chart may have been created with [employer] voice recognition software. Occasi onal wrong-word or [...] 2019 | Visit | | [address] | | | | | | [place] | | | | | | [address] | | | | | | | | +--------+---------+ + + + | 04/11/ | Office | Cardiology | Yusef Asiffauzia, | | | 2020 | Visit | | MD [address] | | | | | | [place], | | | | | | [place] [address] | | | | | | [phone] | | | | | | | | +--------+---------+ + + + + +------+--------+ + + | Name | Type | Priori | Associated Diagnoses | Order Schedule | | | | ty | | | + +------+--------+ + + | Basic Metabolic | Lab | Routin | Hypertension, | 1 Occurrences | | Panel | | e | essential | starting 08/28/2019 | | | | | | until 08/28/2020 | + +------+--------+ + + documented as of this encounter Procedures + +--------+ + + + | Procedure Name | Priori | Date/Time | Associated Diagnosis | Comments | | | ty | | | | + +--------+ + + + | ECG 12 LEAD | Routin | 08/28/2019 | Atrial | Results for this | | | e | 3:08 PM | fibrillation, | procedure are in the | | | | PST | unspecified type | results section. | | | | | (HCC) | | + +--------+ + + + documented in this encounter Results ECG 12 lead (08/28/2019 3:08 PM PST) + + + + + + | Component | Value | Ref Range | Performed | Pathologist | | | | | At | Signature | + + + + + + | VENTRICULAR | 78 | BPM | [facility] | | | RATE EKG | | | | | + + + + + + | ATRIAL RATE | 78 | BPM | [facility] | | + + + + + + | P-R | 160 | ms | [facility] | | | INTERVAL | | | | | + + + + + + | QRS | 88 | ms | [facility] | | | DURATION | | | | | + + + + + + | Q-T | 388 | ms | [facility] | | | INTERVAL | | | | | + + + + + + | Q-T | 442 | ms | [facility] | | | INTERVAL | | | | | | (CORRECTED) | | | | | + + + + + + | P WAVE AXIS | 50 | degrees | [facility] | | + + + + + + | QRS AXIS | 52 | degrees | [facility] | | + + + + + + | T AXIS | 31 | degrees | [facility] | | + + + + + + | INTERPRETAT | Sinus rhythm with | | [facility] | | | ION TEXT | occasional premature | | | | | | ventricular | | | | | | complexesOtherwise | | | | | | normal ECGNo previous | | | | | | ECGs availableConfirmed | | | | | | by NORMAN ASIF MD | | | | | | ([id number]) on 08/28/2019 | | | | | | 5:08:37 PM | | | | + + + + + + + + | Specimen | + + | | + + + + + | Narrative | Performed At | + + + | | | + + + + +---------+ + + | Performing | Address | City/State/Zipcode | Phone Number | | Organization | | | | + +---------+ + + | [facility] | | | | + +---------+ + + documented in this encounter Visit Diagnoses + + | Diagnosis | + + | Atrial fibrillation, unspecified type (HCC) - Primary | + + | Hypertension, essential Unspecified essential hypertension | + + documented in this encounter"
--- OUTSIDE RECORDS SUMMARY | ~2020-07-05 | XMS | Encounter Summary ---
Demographics + + + | Address | [address] | | | [place] [address] | + + + | Home Phone | | + + + | Preferred Language | Unknown | + + + | Marital Status | Single | + + + | Anabaptist Affiliation | Unknown | + + + | Race | or | + + + | Ethnic Group | Not or | + + + Author + + + | Author | [facility] | | | and [place] | + + + | Organization | [facility] | | | [...] Team Providers + +------+ + | Care Electrical Instrumentation Technician Name | Role | Phone | + +------+ + | Isabel Cheung | PCP | | + +------+ + Encounter Details +--------+ + + + + | Date | Type | Department | Care Team | Description | +--------+ + + + + | 08/22/ | Abstract | [facility] | Provider, | Atrial fibrillation, | | 2019 | | CARDIOLOGY [address] | [address] | unspecified type | | | | [place], | [address] | (HCC); Hypertension, | | | | [place] [address] | [place] [address] | essential; Morbid | | | | [phone] | | obesity (HCC); | | | | | | Alcoholic (HCC); | | | | | | Anxiety; Snoring | +--------+ + + + + Social History + +-------+ +--------+------+ | Tobacco Use | Types | Packs/Day | Years | Date | | | | | Used | | + +-------+ +--------+------+ | Former Smoker | | | | | + +-------+ +--------+------+ + +---+---+---+ | Smokeless Tobacco: | | | | | Never Used | | | | + +---+---+---+ + + + | Sex Assigned at [...] 2019 | Visit | | [address] | | | | | | [place] | | | | | | [address] | | | | | | | | +--------+---------+ + + + | 04/11/ | Office | Cardiology | Gerry Asif, | | | 2020 | Visit | | MD [address] | | | | | | [place], | | | | | | [place] [address] | | | | | | [phone] | | | | | | | | +--------+---------+ + + + documented as of this encounter Visit Diagnoses + + | Diagnosis | + + | Atrial fibrillation, unspecified type (HCC) | + + | Hypertension, essential Unspecified essential hypertension | + + | Morbid obesity (HCC) Morbid obesity | + + | Alcoholic (HCC) Other and unspecified alcohol dependence, unspecified drinking | | behavior | + + | Anxiety Anxiety state, unspecified | + + | Snoring Other dyspnea and respiratory abnormality | + + documented in this encounter"
[~2020-07-05 13:18] MED LIST changes: +ABILIFY10 MG PO
[2020-07-05] MEDS ORDERED: ADULT LOW DOSE81 MG PO (13:35)
--- NOTE | 2020-07-07 11:25 | EKG ---
[facility] [address] [place], [place] [address] Signed Normal sinus rhythm Normal ECG When compared with ECG of 08-AUG-2019 17:02, No significant change was found Confirmed by SUELLEN ALVES MD ([id number]) on 07/07/2020 11:25:27 AM Electronically Signed By: SUELLEN ALVES MD 07/07/20 1125 PATIENT NAME: COOPERGREG Electrocardiogram DATE OF : 87 PHYSICIAN: SUELLEN ALVES MD REPORT #: [id number] REPORT IS CONFIDENTIAL AND NOT TO BE RELEASED WITHOUT AUTHORIZATION
== END 2020-07-05 15:01 | disposition home or self-care (01) ==
LOC: ED 13:18
DX: R07.89 Other chest pain (principal); I10 Essential (primary) hypertension; I48.91 Unspecified atrial fibrillation; Z79.899 Other long term (current) drug therapy; Z79.82 Long term (current) use of aspirin
CPT/HCPCS: 71045; 80053; 83735; 84484; 85025; 93005; 93010; 99285-25

== ENCOUNTER 2020-10-07 21:32 | Emergency (ER) | payer OTHER ==
[~2020-10-07] VITALS: Ht 182.9 cm; Wt 145.1 kg
[~2020-10-07 21:32] MED LIST changes: +ADULT LOW DOSE81 MG PO
--- NOTE | 2020-10-08 16:28 | EKG ---
[facility] [address] [place], [place] [address] Signed Normal sinus rhythm Normal ECG When compared with ECG of 05-JUL-2020 13:29, No significant change was found Confirmed by CRYSTAL CHAWLA DO ([id number]) on 10/08/2020 4:28:24 PM Electronically Signed By: CRYSTAL CHAWLA DO 10/08/20 1628 PATIENT NAME: COOPERGREG Electrocardiogram DATE OF : [birth year] PHYSICIAN: CRYSTAL CHAWLA DO REPORT #: [id number] REPORT IS CONFIDENTIAL AND NOT TO BE RELEASED WITHOUT AUTHORIZATION
== END 2020-10-07 23:40 | disposition home or self-care (01) ==
LOC: ED 21:32
DX: R00.2 Palpitations (principal); I10 Essential (primary) hypertension; I48.91 Unspecified atrial fibrillation; F17.200 Nicotine dependence, unspecified, uncomplicated; Z72.89 Other problems related to lifestyle; Y90.8 Blood alcohol level of 240 mg/100 ml or more; Z79.899 Other long term (current) drug therapy; Z79.82 Long term (current) use of aspirin
CPT/HCPCS: 71045; 80053; 83735; 84484; 85025; 93005; 93010; 99285-25; J7030

== ENCOUNTER 2021-07-12 04:40 | Emergency (ER) | payer OTHER ==
[~2021-07-12] VITALS: Ht 182.9 cm; Wt 145.2 kg
--- OUTSIDE RECORDS SUMMARY | 2021-07-12 04:42 | XMS ---
PreManage Notification: GREG GAMBOA Security Mechanical Development Engineer Events No recent Security Events currently on file [facility] There are no care providers on record at this time. Jj has no Care Guidelines for this patient. Alvaro VISIT COUNT (12 MO.) 2 LEIGHA Cameron TOTAL 2 NOTE: Visits indicate total known visits. ED/C VISIT TRACKING (12 MO.) 07/12/2021 04:41 LEIGHA Gonzalez [place] TYPE: Emergency COMPLAINT: - CHEST PAIN 10/07/2020 21:33 LEIGHA Gonzalez [place] TYPE: Emergency COMPLAINT: - CHEST PAIN DIAGNOSES: - Palpitations - Essential (primary) hypertension - Blood alcohol level of 240 mg/100 ml or more - Other [facility] (current[facility] drug therapy - Other problems related to lifestyle - Unspecified atrial fibrillation - Nicotine dependence, unspecified, uncomplicated - watermelon inspector (current) use of aspirin INPATIENT VISIT TRACKING (12 MO.) No inpatient visits to display in this time frame [email or web address]
--- NOTE | 2021-07-12 19:31 | EKG ---
[facility] [address] [facility] [place], [place] [address] Signed Normal sinus rhythm Normal ECG When compared with ECG of 07-OCT-2020 21:37, No significant change was found Confirmed by JOSE LUIS MC MD ([id number] on 07/12/2021 7:30:58 PM Electronically Signed By: JOSE LUIS MC MD 07/12/211930 PATIENT NAME: COOPERGREG Electrocardiogram DATE OF : 87 PHYSICIAN: JOSE LUIS CM MD REPORT #: [id number] REPORT IS CONFIDENTIAL AND NOT TO BE RELEASED WITHOUT AUTHORIZATION
== END 2021-07-12 09:19 | disposition home or self-care (01) ==
LOC: ED 04:40
DX: K29.20 Alcoholic gastritis without bleeding (principal); E87.6 Hypokalemia; R07.2 Precordial pain; I10 Essential (primary) hypertension; I48.91 Unspecified atrial fibrillation; F17.200 Nicotine dependence, unspecified, uncomplicated; Z79.899 Other long term (current) drug therapy; Z79.82 Long term (current) use of aspirin
CPT/HCPCS: 71045; 80053; 83690; 84484; 85025; 93005; 93010; 96374; 99285-25; J2405

== ENCOUNTER 2021-08-26 14:51 | Emergency (ER) | payer OTHER ==
[~2021-08-26] VITALS: Ht 182.9 cm; Wt 151.9 kg
[2021-08-26] MEDS ORDERED: AUGMENTIN 875-1 EACH PO (15:22)
[2021-08-26] MEDS ORDERED: HYDROCODON-ACE1 EA11 PO (15:22)
== END 2021-08-26 17:07 | disposition home or self-care (01) ==
LOC: ED 14:51
DX: J36 Peritonsillar abscess (principal); I10 Essential (primary) hypertension; I48.91 Unspecified atrial fibrillation; F17.200 Nicotine dependence, unspecified, uncomplicated; Z79.899 Other long term (current) drug therapy; Z79.82 Long term (current) use of aspirin
CPT/HCPCS: 80053; 85025; 96365; 96375; 99283-25; J0295; J1100; J1170; J1885; J7030

== ENCOUNTER 2021-08-28 16:57 | Emergency (ER) | payer OTHER ==
[~2021-08-28] VITALS: Ht 182.9 cm; Wt 153.6 kg
[~2021-08-28 16:57] MED LIST changes: +AUGMENTIN 875-1 EACH PO; +HYDROCODON-ACE1 EA11 PO
--- OUTSIDE RECORDS SUMMARY | 2021-08-28 17:04 | XMS ---
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 Care History Medical/Surgical 07/14/2021 [facility] - PATIENT IS [facility] ELIGIBLE, \T\middot;\T\nbsp; PLEASE REFER PATIENT TO [facility] FOR NON EMERGENT MEDICAL NEEDS. \T\middot;\T\nbsp; [facility] CAN SEE PATIENTS SAME DAY FOR APTS IF PATIENT CALLS FIRST THING IN THE MORNING. E.D. VISIT COUNT (12 MO.) 4 [facility] TOTAL 4 NOTE: Visits indicate total known visits. 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 - Hypokalemia - Precordial pain 10/07/2020 21:33 [facility] [place] TYPE: Emergency COMPLAINT: - CHEST PAIN DIAGNOSES: - Palpitations - Essential (primary) hypertension - Blood alcohol level of 240 mg/100 ml or more - Other nursing home (current) drug therapy - Other problems related to lifestyle - Unspecified atrial fibrillation - Nicotine dependence, unspecified, uncomplicated - superintendent terminal (current) use of aspirin INPATIENT VISIT TRACKING (12 MO.) No inpatient visits to display in this time frame [email or web address]
[2021-08-28] MEDS ORDERED: TYLENOL EXTRA500 MG PO (23:13)
[2021-08-28] MEDS ORDERED: AUGMENTIN 875-1 EACH PO (23:13)
[2021-08-28] MEDS ORDERED: IBU800 MG PO (23:13)
== END 2021-08-28 23:39 | disposition home or self-care (01) ==
LOC: ED 16:57
DX: J36 Peritonsillar abscess (principal); I10 Essential (primary) hypertension; I48.91 Unspecified atrial fibrillation; F17.200 Nicotine dependence, unspecified, uncomplicated; Z79.899 Other long term (current) drug therapy; Z79.82 Long term (current) use of aspirin
CPT/HCPCS: 42700; 70491; 80053; 83605; 85025; 99283-25; J0295; J2270; J2405; J2930; J7030; Q9967

== ENCOUNTER 2021-10-16 19:58 | Emergency (ER) | payer OTHER ==
[~2021-10-16] VITALS: Ht 182.9 cm; Wt 149.7 kg
[~2021-10-16 19:58] MED LIST changes: +IBU800 MG PO; +TYLENOL EXTRA500 MG PO
== END 2021-10-17 00:37 | disposition home or self-care (01) ==
LOC: ED 19:58
DX: F10.129 Alcohol abuse with intoxication, unspecified (principal); I48.91 Unspecified atrial fibrillation; I10 Essential (primary) hypertension; F17.200 Nicotine dependence, unspecified, uncomplicated; E66.9 Obesity, unspecified; Z79.899 Other long term (current) drug therapy; Z79.82 Long term (current) use of aspirin; Y90.8 Blood alcohol level of 240 mg/100 ml or more
CPT/HCPCS: 80048; 80053; 81001; 85025; 99284-25; G0480

== ENCOUNTER 2022-02-23 01:08 | Emergency (ER) | payer OTHER ==
[~2022-02-23] VITALS: Ht 182.9 cm; Wt 131.5 kg
--- OUTSIDE RECORDS SUMMARY | 2022-02-23 01:10 | XMS ---
PreManage Notification: GREG GAMBOA Security Pretzel Twister Events No recent Security Events currently on file CRITERIA MET - [facility] CARE PROVIDERS [facility] 07/14/20[facility] PHONE: [phone] Jj has no Care Guidelines for this patient. Care History Medical/Surgical 07/14/2021 [facility] - PATIENT IS [facility] ELIGIBLE, \T\middot;\T\nbsp; PLEASE REFER PATIENT TO [facility] FOR NON EMERGENT MEDICAL NEEDS. \T\middot;\T\nbsp; [facility] CAN SEE PATIENTS SAME DAY FOR APTS IF PATIENT CALLS FIRST THING IN THE MORNING. E.D. VISIT COUNT (12 MO.) [address] [place] [address] TOTAL 5 NOTE: Visits indicate total known visits. ED/UCC VISIT TRACKING (12 MO.) 02/23/2022 01:09 [facility] [place] TYPE: Emergency COMPLAINT: - CHEST PAIN 10/16/2021 19:59 [facility] [place] TYPE: Emergency COMPLAINT: - SHOULDER INJURY DIAGNOSES: - snf (current) use of aspirin - Unspecified atrial fibrillation - Alcohol abuse with intoxication, unspecified - Nicotine dependence, unspecified, uncomplicated - Other detention (current) drug therapy - Essential (primary) hypertension - Blood alcohol level of 240 mg/100 ml or more - Obesity, unspecified - Altered mental status, unspecified [facility] COMPLAINT: - SORE THROAT DIAGNOSES: - Other detention (current) drug therapy - Essential (primary) hypertension - Nicotine dependence, unspecified, uncomplicated - Unspecified atrial fibrillation - Peritonsillar abscess - Acute pharyngitis, unspecified - snf (current) use of aspirin 08/26/2021 14:[address] [facility] [place] TYPE: Emergency COMPLAINT: - SORE THROAT, HIGH B/P DIAGNOSES: - Unspecified atrial fibrillation - Acute pharyngitis, unspecified - Other detention (current) drug therapy - Nicotine dependence, unspecified, uncomplicated - Essential (primary) hypertension - Peritonsillar abscess - director long term care (current) use of aspirin 07/12/2021 04:[address] [facility] [place] TYPE: Emergency COMPLAINT: - CHEST PAIN DIAGNOSES: - Unspecified atrial fibrillation - Nicotine dependence, unspecified, uncomplicated - Essential (primary) hypertension - director long term care (current) use of aspirin - Alcoholic gastritis without bleeding - Other detention (current) drug therapy - Hypokalemia - Precordial pain INPATIENT VISIT TRACKING (12 MO.) No inpatient visits to display in this time frame [email or web address]
--- NOTE | 2022-02-23 21:30 | EKG ---
[facility] [address] [facility] [place], [place] [address] Signed Sinus tachycardia Low voltage QRS Borderline ECG When compared with ECG of 12-JUL-2021 04:50, No significant change was found Confirmed by JOSE LUIS CM MD ([id number] on 02/23/2022 9:30:25 PM Electronically Signed By: JOSE LUIS MC MD 02/23/222129 PATIENT NAME: GREG GAMBOA Electrocardiogram DATE OF : 87 PHYSICIAN: JOSE LUIS MC MD REPORT #: [id number] REPORT IS CONFIDENTIAL AND NOT TO BE RELEASED WITHOUT AUTHORIZATION
== END 2022-02-23 06:11 | disposition home or self-care (01) ==
LOC: ED 01:08
DX: R07.89 Other chest pain (principal); F10.129 Alcohol abuse with intoxication, unspecified; F12.129 Cannabis abuse with intoxication, unspecified; I10 Essential (primary) hypertension; I48.91 Unspecified atrial fibrillation; F17.200 Nicotine dependence, unspecified, uncomplicated; Z79.899 Other long term (current) drug therapy; Z79.82 Long term (current) use of aspirin; Y90.8 Blood alcohol level of 240 mg/100 ml or more
CPT/HCPCS: 36415; 71045; 80053; 83690; 84484; 85025; 93005; 93010; 94660; 96361; 96374; 99285-25; G0480; J2405; J7030